=== PATIENT | male | born 1990 | race Caucasian/White ===

== ENCOUNTER 2016-10-17 17:48 | Emergency (ER) | payer SELFPAY ==
[2016-10-17 18:06] VITALS: TEMP 97.7
[2016-10-17 18:46] LABS: BASO # 0.1 K/uL (0.0-0.2); BASO % 0.8 % (0.0-2.0); EOS # 0.2 K/uL (0.0-0.7); EOS % 3.3 % (0.0-4.0); HEMOGLOBIN 14.5 g/dL (12.0-18.0); LYMPH # 1.6 K/uL (1.0-4.3); LYMPH % 23.8 % (20.0-40.0); MEAN CELL VOLUME 82.5 fL (80.0-94.0); MEAN CORPUSCULAR HEMOGLOBIN 27.1 pg (27.0-31.0); MEAN CORPUSCULAR HGB CONC 32.9 g/dL (33.0-37.0); MEAN PLATELET VOLUME 10.7 fL (7.2-11.7); MONO # 0.4 K/uL (0.0-0.8); MONO % 5.7 % (0.0-10.0); NEUT # 4.5 K/uL (1.8-7.0); NEUT % 66.4 % (50.0-75.0); NRBC % 0.1 % (0.0-2.0); RBC 5.36 Mil/uL (4.40-5.90); RED CELL DISTRIBUTION WIDTH 14.2 % (11.5-14.5); WHITE BLOOD COUNT 6.8 K/uL (4.8-10.8)
[2016-10-17 18:57] LABS: ALB/GLOB RATIO 1.1 (1.0-2.1)
[2016-10-17 18:58] LABS: CALCIUM 8.8 mg/dl (8.6-10.4)
[2016-10-17 19:08] LABS: TROPONIN I 0.085 ng/mL (0.00-0.120)
[2016-10-17] MEDS ORDERED: Sodium Chloride 0.9% 1,000 ML IV ONE (19:16)
[2016-10-17 19:18] LABS: URINE BILIRUBIN NEGATIVE (NEGATIVE); URINE BLOOD NEGATIVE (NEGATIVE); URINE CLARITY Clear (Clear); URINE COLOR Yellow (YELLOW); URINE GLUCOSE (UA) 1+ mg/dL (Normal); URINE LEUKOCYTE ESTERASE NEG Leu/uL (Negative); URINE NITRATE NEGATIVE (NEGATIVE); URINE PROTEIN 3+ mg/dL (NEGATIVE); URINE UROBILINOGEN NORMAL mg/dL (0.2-1.0)
--- NOTE | 2016-10-17 19:25 | C.PDOC ---
History Of Present Illness 26 year old male presents to the ED with complaints of "room-spinning" dizziness , nausea, and vomiting beginning at 4pm today. Patient notes a history of HTN beginning last year and has not followed up with a doctor. He denies fever, chest pain, or abdominal pain. Chief Complaint (Nursing): Dizziness/Lightheaded History Per: Patient History/Exam Limitations: no limitations Onset/Duration Of Symptoms: Hrs (since 4pm today ) Current Symptoms Are (Timing): Still Present Seizure Or Post-ictal Symptoms: None Fall Associated With With Symptoms: No Recent travel outside of the [place]: No Past Medical History Reviewed: Historical Data, Nursing Documentation, Vital Signs Vital Signs: Last Vital Signs Temp 97.7 F 10/17/16 18:02 Pulse 80 10/17/16 21:13 Resp 18 10/17/16 21:13 BP 166/110 H 10/17/16 21:13 Pulse Ox 94 L 10/17/16 21:13 - Medical History PMH: Asthma, HTN - [facility] Procedures APPLICATION OF SPLINT (10/15/13) Family History: States: Unknown Family Hx - Social History Hx Tobacco Use: No Hx Alcohol Use: No Hx Substance Use: No - Immunization History Hx Tetanus Toxoid Vaccination: No Hx Influenza Vaccination: No Hx Pneumococcal Vaccination: No Review Of Systems Constitutional: Negative for: Fever, Chills Cardiovascular: Negative for: Chest Pain Respiratory: Negative for: Cough, Shortness of Breath Gastrointestinal: Positive for: Nausea, Vomiting. Negative for: Abdominal Pain , Diarrhea Neurological: Positive for: Dizziness Physical Exam - Physical Exam Appears: Non-toxic, No Acute Distress Skin: Warm, Dry Head: Atraumatic Eye(s): bilateral: Normal Inspection, PERRL, EOMI Oral Mucosa: Moist Neck: Supple Chest: Symmetrical, No Deformity Cardiovascular: Rhythm Regular Respiratory: Normal Breath Sounds, No Rhonchi, No Wheezing Gastrointestinal/Abdominal: Soft, No Tenderness, No Distention, No Guarding, No Rebound Extremity: Normal ROM, No Tenderness, No Pedal Edema, No Calf Tenderness, No Swelling Neurological/Psych: Oriented x3, Normal Speech, Normal Cognition, Normal Cranial Nerves, Normal Motor, Normal Sensation, Other (No focal deficits) Gait: Steady ED Course And Treatment - Laboratory Results Result Diagrams: 10/17/16 18:42 10/17/16 18:42 O2 Sat by Pulse Oximetry: 95 (room air ) Disposition Counseled Patient/Family Regarding: Diagnosis - Disposition Referrals: [facility] [Outside] Disposition: HOME/ ROUTINE Disposition Time: 21:45 Condition: STABLE Prescriptions: Enalapril Maleate 5 mg PO DAILY #14 tablet Meclizine [Antivert] 12.5 mg PO Q6 #20 tab Instructions: Vertigo (ED), Hypertension (ED) Forms: [employer] (S[place] Arabian) - POA Present On Arrival: None - Clinical Impression Clinical Impression: Elevated blood pressure reading, Vertigo, Hypertension - Scribe Statement The provider has reviewed the documentation as recorded by the Scribe Lissette Rubio All medical record entries made by the Sujitibe were at my direction and personally dictated by me. I have reviewed the chart and agree that the record accurately reflects my personal performance of the history, physical exam, medical decision making, and the department course for this patient. I have also personally directed, reviewed, and agree with the discharge instructions and disposition.
[2016-10-17] MEDS ORDERED: Sodium Chloride 0.9% 1,000 ML ONE (19:26)
[2016-10-17 20:47] VITALS: RESP 18
[2016-10-17] MEDS ORDERED: Enalaprilat 2.5 MG/2 ML IV ONE (20:52)
[2016-10-17] MEDS ORDERED: Enalaprilat 2.5 MG/2 ML ONE (20:57)
[2016-10-17 21:18] VITALS: BP 166/110; PULSE 80
[2016-10-17 21:48] VITALS: O2SAT 95
--- NOTE | 2016-10-18 09:09 | CT ---
PROCEDURE: CT HEAD WITHOUT CONTRAST. HISTORY: vertigo/ vomiting COMPARISON: None available. TECHNIQUE: Axial computed tomography images were obtained through the head/brain without intravenous contrast. Radiation dose: Total exam DLP = 1157 mGy-cm. This CT exam was performed using one or more of the following dose reduction techniques: Automated exposure control, adjustment of the mA and/or kV according to patient size, and/or use of iterative reconstruction technique. FINDINGS: HEMORRHAGE: No intracranial hemorrhage. BRAIN: No mass effect or edema. No atrophy or chronic microvascular ischemic changes. Prominent cisterna magna. VENTRICLES: Unremarkable. No hydrocephalus. CALVARIUM: Unremarkable. PARANASAL SINUSES: Unremarkable as visualized. No significant inflammatory changes. MASTOID AIR CELLS: Unremarkable as visualized. No inflammatory changes. OTHER FINDINGS: None. IMPRESSION: No acute intracranial abnormality. If symptoms persists, consider MRI. These findings were preliminarily reported at 8:27 p.m. on 10/17/[address] Kirti Ly from [facility].
== END 2016-10-17 22:02 | disposition home or self-care (01) ==
LOC: C.ER 17:48
DX: R42 Dizziness and giddiness (principal); I10 Essential (primary) hypertension
CPT/HCPCS: 70450; 80053; 81001; 83690; 84484; 85025; 96374; 96375; 99285; J2060; J2405; J7040

== ENCOUNTER 2016-11-19 07:05 | Inpatient (IN) | payer BC ==
[2016-11-19 07:18] VITALS: BMI 34.2
[2016-11-19] MEDS ORDERED: Albuterol-Ipratrop 3 mg / 0.5 (3 ml) UD ONE (07:27)
[2016-11-19] MEDS ORDERED: Albuterol 0.083% Inhal Sol (2.5 mg/3 mL) UD IH STA (07:35)
[2016-11-19] MEDS ORDERED: Albuterol-Ipratrop 3 mg / 0.5 (3 ml) UD INH STA (07:35)
[2016-11-19] MEDS ORDERED: Albuterol 0.083% Inhal Sol (2.5 mg/3 mL) UD ONE (07:45)
[2016-11-19 08:02] LABS: BASO # 0.1 K/uL (0.0-0.2); BASO % 1.3 % (0.0-2.0); EOS # 0.5 K/uL (0.0-0.7); EOS % 6.5 % (0.0-4.0); HEMATOCRIT 42.1 % (35.0-51.0); LYMPH # 2.4 K/uL (1.0-4.3); LYMPH % 30.4 % (20.0-40.0); MEAN CELL VOLUME 81.8 fL (80.0-94.0); MEAN PLATELET VOLUME 10.8 fL (7.2-11.7); MONO # 0.5 K/uL (0.0-0.8); MONO % 6.8 % (0.0-10.0); NRBC % 0.2 % (0.0-2.0); RED CELL DISTRIBUTION WIDTH 14.2 % (11.5-14.5); WHITE BLOOD COUNT 7.7 K/uL (4.8-10.8)
--- NOTE | 2016-11-19 08:03 | RAD ---
PROCEDURE: CHEST RADIOGRAPH, 1 VIEW HISTORY: SOB COMPARISON: 11/28/2014 FINDINGS: LUNGS: The interstitial and bronchovascular markings appear diffusely increased. Overall soft tissues also appear increased vague increased opacity at the right lung base noted here coalescent pulmonary edema versus coalescent she infiltrate. Limited visualization of bold base. PLEURA: No pneumothorax or pleural fluid seen. CARDIOVASCULAR: Marked interval cardiomegaly -significant change. The differences in technique are noted and, in part contributory OSSEOUS STRUCTURES: No significant abnormalities. VISUALIZED UPPER ABDOMEN: Normal. OTHER FINDINGS: None. IMPRESSION: Interval cardiomegaly. Interval views interstitial marking prominence -interstitial pulmonary edema with mild coalescence at the right lung base and possibly left lung base and considerations. Patchy bibasilar vague infiltrates are not excluded. Follow-up recommended Overall body habitus also appears increased
[2016-11-19 08:28] LABS: POTASSIUM 3.2 mmol/L (3.6-5.2)
[2016-11-19 08:30] LABS: ALB/GLOB RATIO 1.2 (1.0-2.1); BILIRUBIN,TOTAL 0.7 mg/dL (0.2-1.3); TOTAL PROTEIN 7.3 g/dL (6.3-8.3)
[2016-11-19 08:31] LABS: CALCIUM 8.5 mg/dl (8.6-10.4)
[2016-11-19] MEDS ORDERED: Nitroglycerin 50mg in D5W 50 MG/250 ML BOTTLE IV STA (09:10)
[2016-11-19 09:13] LABS: TROPONIN I 0.166 ng/mL (0.00-0.120)
--- NOTE | 2016-11-19 09:14 | C.PDOC ---
History Of Present Illness 26 y/o male presents to ED with c/o SOB, non-productive cough, and chest tightness for the past 3 days. Patient reports PMHx of HTN and asthma, states he was diagnosed with HTN approx 1 year ago, but is not taking any medications. Patient denies fever, chills, nausea, vomiting, chest pain, palpitations. Time Seen by Provider: 11/19/16 07:32 Chief Complaint (Nursing): Shortness Of Breath History Per: Patient History/Exam Limitations: no limitations Current Symptoms Are (Timing): Still Present Current Respiratory Medications: See Home Med List Severity: Moderate Associated Symptoms: denies: Fever, Chills, Chest Pain, Bloody Cough, Dizziness Recent travel outside of the [place]: No Past Medical History Reviewed: Historical Data, Nursing Documentation, Vital Signs Vital Signs: Last Vital Signs Temp 98.1 F 11/19/16 11:30 Pulse 95 H 11/19/16 16:44 Resp 18 11/19/16 16:44 BP 117/78 11/19/16 18:16 Pulse Ox 96 11/19/16 18:45 - Medical History PMH: Asthma, Bronchitis, HTN - [facility] Procedures APPLICATION OF SPLINT (10/15/13) Family History: States: No Known Family Hx - Social History Hx Tobacco Use: No Hx Alcohol Use: No Hx Substance Use: No - Immunization History Hx Tetanus Toxoid Vaccination: Yes Hx Influenza Vaccination: No Hx Pneumococcal Vaccination: No Review Of Systems Except As Marked, All Systems Reviewed And Found Negative. Constitutional: Negative for: Fever, Chills Cardiovascular: Negative for: Chest Pain Respiratory: Positive for: Cough, Shortness of Breath, SOB with Excertion, Wheezing. Negative for: Sputum Gastrointestinal: Negative for: Nausea, Vomiting, Abdominal Pain, Diarrhea Skin: Negative for: Rash Neurological: Negative for: Headache, Dizziness Physical Exam - Physical Exam Appears: Non-toxic, Other (in mild to moderate respiratory distress, speaking in short sentences) Skin: Warm, Dry, No Rash Head: Normacephalic Oral Mucosa: Moist Chest: Symmetrical Cardiovascular: Rhythm Regular (tachycardic) Respiratory: Accessory Muscle Use (mild), Rales (bilateral), No Rhonchi, Wheezing (expiratory, bilaterally) Gastrointestinal/Abdominal: Bowel Sounds, Soft, No Tenderness, Other (obese) Back: Normal Inspection Extremity: Normal ROM, No Calf Tenderness, Capillary Refill (< 2 sec.), Other (+ 1 pitting edema B/L lower legs) Pulses: Left Dorsalis Pedis: Normal, Right Dorsalis Pedis: Normal Neurological/Psych: Oriented x3 ED Course And Treatment - Laboratory Results Result Diagrams: 11/19/16 07:55 11/19/16 07:55 ECG: Interpreted By Me, Viewed By Me ECG Rhythm: Sinus Tachycardia ECG Interpretation: Abnormal Interpretation Of ECG: normal axis, LVH, no acute ST/T wave changes Rate From EC (bpm) O2 Sat by Pulse Oximetry: 96 Pulse Ox Interpretation: Normal - Radiology CXR: Interpreted by Me, Viewed By Me (cardiomegaly, (+) pulm vascular congestion ) Progress Note: Blood work, CXR, EKG ordered and reviewed. Patient given IV solumedrol, IV Lasix, IV hydralazine, nebulizer treatments. Stat echo ordered due to clinic picture of CHF, CXR showing marked cardiomegaly - possible pericardial effusion. IV Tridil drip and Bipap ordered. 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 Patient admitted under hospitalist service Dr. Hopper, pending discussion with intesivist. 9:55am- Spoke with ICU resident, they are aware of ICU patient for their eval/admission. Dr. Peres to come down and eval patient. - Physician Consult Information Physician Contacted: Govind Hopper Outcome Of Conversation: Hospitalist aware of ICU admission & in agreement Critical Care Time - Critical Care Note Total Time (in mins): 40 Documented critical care: time excludes all time spent performing seperately billable procedures. Disposition - Disposition Disposition: HOSPITALIZED Disposition Time: 09:33 Condition: CRITICAL - Clinical Impression Clinical Impression: Acute renal failure, Acute CHF, Elevated brain natriuretic peptide (BNP) level , Pericardial effusion, Elevated troponin, Hypertensive emergency Decision To Admit - Pt Status Changed To: Hospital Disposition Of: Inpatient - Admit Certification Admit to Inpatient:: After my assessment, the patient will require hospitalization for at least two midnights. This is because of the severity of symptoms shown, intensity of services needed, and/or the medical risk in this patient being treated as an outpatient. - InPatient: Physician Admission Certification: I certify that this patient requires 2 or more midnights of care for the following reason:: see notes - . Bed Request Type: ICU Admitting Physician: Govind Hopper Patient Diagnosis: Acute CHF, Pericardial effusion, Elevated brain natriuretic peptide (BNP) level , Elevated troponin, Acute renal failure, Hypertensive emergency
[2016-11-19] MEDS ORDERED: Nitroglycerin 50mg in D5W 50 MG/250 ML BOTTLE IV ONE (09:21)
--- NOTE | 2016-11-19 09:25 | C.PDOC ---
Time Seen by Provider: 11/19/16 07:32 Chief Complaint (Nursing): Shortness Of Breath Past Medical History Vital Signs: Last Vital Signs Temp 99.1 F 11/19/16 07:18 Pulse 102 H 11/19/16 08:55 Resp 30 H 11/19/16 08:55 BP 205/139 H 11/19/16 08:55 Pulse Ox 96 11/19/16 08:55 - Medical History PMH: Asthma, Bronchitis, HTN Denies: Chronic Kidney Disease - [facility] Procedures APPLICATION OF SPLINT (10/15/13) Family History: States: Unknown Family Hx - Social History Hx Tobacco Use: No Hx Alcohol Use: No Hx Substance Use: No - Immunization History Hx Tetanus Toxoid Vaccination: Yes Hx Influenza Vaccination: No Hx Pneumococcal Vaccination: No ED Course And Treatment - Laboratory Results Result Diagrams: 11/19/16 07:55 11/19/16 07:55 O2 Sat by Pulse Oximetry: 96 Disposition - Disposition Forms: [employer] (Somali)
[2016-11-19] MEDS ORDERED: Perflutren Lipid Microsphere 1.5 ML SUS IV ONE (09:30)
[2016-11-19 11:32] LABS: PHOSPHOROUS 3.9 mg/dL (2.5-4.5)
[2016-11-19 11:33] LABS: MAGNESIUM 1.8 mg/dL (1.6-2.3)
[2016-11-19] MEDS: Potassium Chloride 20 mEq ER Tab PO SCH (12:21)
[2016-11-19] MEDS ORDERED: Enoxaparin 120 mg Syringe SC SCH (14:45)
--- NOTE | 2016-11-19 14:52 | CP.PCM.HP ---
History of Present Illness - History of Present Illness History of Present Illness: Patient was seen and examined by me in ICU bed 4 I spoke with the patient as well as the family at bedside and also with ER. Jason Esteves is a 26 year old male who came to the ER with the chief complaint of 3 days of worsening shortness of breath, chest pressure. From what the patient explains and what the family say, he has never been hospitalized before. In the ER he had an XRAY done which revealed a very significant cardiomegaly as well as bilateral chest congestion. He also had a systolic blood pressure of 225/110 and it did not respond to medications and thus was started on a Tridil ggt and brought to the ICU for further titration. Because of the way the the chest XRAY appeared there was concern that he may have had a pericardial tamponade/fluid collection around the heart and a stat echo was done. At this time we are currently pending the official report however I am being told that it appears that the patient does not have tamponade or pericardial effusion but that he has cardiomyopathy/hypokinesis. He has a BNP of 1,800 and there are borderline elevated tropinins as well. When I came and saw the patient he was already in ICU 4 and the systolic BP had come down to 170s while on the tridil ggt. He had also received a one time dose of Lasix 40 as well. He explained he felt much better, his shortness of breath was still present but improved. He reported the chest pain/pressure resolved, the shortness of breath resolved, denied headache, denied blurry vision, denied abdominal pain, denied fevers, denied chills. Both the patient and family explain that he does not sleep at night, that he has heavy snorring. He states he cannot lay flat on his back due to coughing. He and his family also reports a very poor eating habits and consumes very salty and unhealthy food. Past Medical Hx: HTN, Asthma Surgical Hx: None Allergies: To seafood/shrimp Family history: Mother is present and says she has a history of lupus and HTN. Father explains that every single man in his side of the family has heart disease and multiple deaths from heart attacks. Medications: None Social: Denied smoking, denied alcohol, denied drugs Present on Admission - Present on Admission Any Indicators Present on Admission: Yes History of DVT/PE: No History of Uncontrolled Diabetes: No Urinary Catheter: No Decubitus Ulcer Present: No Review of Systems - Constitutional Constitutional: Daytime Sleepiness, Headache, Lethargy, Snoring - EENT Eyes: absent: Blurred Vision, Change in Vision - Cardiovascular Cardiovascular: Chest Pain. absent: Irregular Heart Rhythm, Palpitations - Respiratory Respiratory: Dyspnea, Dyspnea on Exertion, Snoring - Gastrointestinal Gastrointestinal: absent: Abdominal Pain, Belching, Bloating - Genitourinary Genitourinary: absent: Change in Urinary Stream, Difficulty Urinating - Neurological Neurological: absent: Abnormal Gait, Abnormal Hearing, Abnormal Speech - Psychiatric Psychiatric: Abnormal Sleep Pattern Past Patient History - Past Medical History & Family History Past Medical History?: Yes Past Family History: Reviewed and not pertinent Pertinent Family History: Please see above - Past Social History Smoking Status: Never Smoked - CARDIAC Hx Hypertension: Yes - PULMONARY Hx Asthma: Yes Hx Bronchitis: Yes - NEUROLOGICAL Hx Neurological Disorder: No - HEENT Hx HEENT Problems: No - RENAL Hx Chronic Kidney Disease: No - ENDOCRINE/METABOLIC Hx Endocrine Disorders: No - HEMATOLOGICAL/ONCOLOGICAL Hx Blood Disorders: No - INTEGUMENTARY Hx Dermatological Problems: No - MUSCULOSKELETAL/RHEUMATOLOGICAL Hx Falls: No - GASTROINTESTINAL Hx Gastrointestinal Disorders: No - GENITOURINARY/GYNECOLOGICAL Hx Genitourinary Disorders: No - PSYCHIATRIC Hx Substance Use: No - SURGICAL HISTORY Hx Surgeries: No - ANESTHESIA Hx Anesthesia: No Meds Allergies/Adverse Reactions: Allergies Allergy/AdvReac Type Severity Reaction Status Date / Time shrimp Allergy Uncoded 11/19/16 07:18 Physical Exam - Constitutional Appears: No Acute Distress - Head Exam Head Exam: NORMAL INSPECTION, NORMOCEPHALIC - Eye Exam Eye Exam: EOMI, Normal appearance - ENT Exam ENT Exam: Mucous Membranes Moist - Respiratory Exam Respiratory Exam: Decreased Breath Sounds, NORMAL BREATHING PATTERN - Cardiovascular Exam Cardiovascular Exam: REGULAR RHYTHM. absent: Systolic Murmur Additional comments: At this time I do not appreciate mumurrs - GI/Abdominal Exam GI & Abdominal Exam: Normal Bowel Sounds, Soft. absent: Distended, Firm, Guarding - Neurological Exam Neurological exam: Alert, Oriented x3 - Psychiatric Exam Psychiatric exam: Normal Affect, Normal Mood - Skin Skin Exam: Normal Color, Warm Results - Vital Signs Recent Vital Signs: Last Vital Signs Temp 98.1 F 11/19/16 11:30 Pulse 108 H 11/19/16 13:06 Resp 24 11/19/16 13:00 BP 183/113 H 11/19/16 12:44 Pulse Ox 98 11/19/16 13:06 - Labs Result Diagrams: 11/19/16 07:55 11/19/16 07:55 Assessment & Plan - Assessment and Plan (Free Text) Assessment: CHF/Shortness of breath - likely secondary from cardiomyopathy/hypokinesis 11/19: Pending the official echo results at this time, this being said I am being told he does not appear he has pericardial effusion/tamponade at this time. Also the way the EKG looks does not appear to be tamponade as size of his QRS complexes are not small and it does not appear to be alteran appearance. He will be on lasix IV as well as bipap as needed Because of his CHF/cardiomyopathy and elevated BP, will add on MICA-I now. Also start on ASA and statin. Cardiology evaluation is pending Repeat CXRAY tommorow The first troponin is elevated, probably from the stress. Lovenox 110 sc BID given. Trend additional cardiac enzymes. HTN Urgency/Emergency - improved - now currently on Tridil/nitroglycerin ggt. 11/19 Being titrated at this time. Also on Lasix Added on MICA-I Pending echo Obstructive sleep apnea: 11/19 He will need an outpatient work up in the future. [place] this long standing MARY is contributing to his CHF and cardiomyopathy. I spoke with the family with a help of clinical manager and updated them as well.
--- NOTE | 2016-11-19 15:04 | CP.PCM.CON ---
<Sahra Diaz - Last Filed: 11/19/16 17:31> History of Present Illness - History of Present Illness History of Present Illness: Thoracic Surgery - Dr. Ocampo 26 yo M who presented to ED today w/ worsening SOB x3 days. Pt. states he's never had anything like this before, notes that he recently was dx with HTN by his PMD, Dr. Mckeon. He describes gradual onset of SOB and chest pressure which began 3 days ago, much worse laying down. He states he was unable to sleep last night and therefore decided to come to ED today. He denies any Fever /Chills, N/V, Dizziness/Headache. PMH: HTN, Asthma PSH: none NKDA No meds In ED pt was Hypertensive w/ systolic pressure >200. CXR shows cardiomegaly. Surgery was consulted to R/O pericardial effusion/cardiac tamponade. Review of Systems - Review of Systems All systems: reviewed and no additional remarkable complaints except (as per HPI ) Past Patient History - Past Medical History & Family History Past Medical History?: Yes - Past Social History Smoking Status: Never Smoked - CARDIAC Hx Hypertension: Yes - PULMONARY Hx Asthma: Yes Hx Bronchitis: Yes - NEUROLOGICAL Hx Neurological Disorder: No - HEENT Hx HEENT Problems: No - RENAL Hx Chronic Kidney Disease: No - ENDOCRINE/METABOLIC Hx Endocrine Disorders: No - HEMATOLOGICAL/ONCOLOGICAL Hx Blood Disorders: No - INTEGUMENTARY Hx Dermatological Problems: No - MUSCULOSKELETAL/RHEUMATOLOGICAL Hx Falls: No - GASTROINTESTINAL Hx Gastrointestinal Disorders: No - GENITOURINARY/GYNECOLOGICAL Hx Genitourinary Disorders: No - PSYCHIATRIC Hx Substance Use: No - SURGICAL HISTORY Hx Surgeries: No - ANESTHESIA Hx Anesthesia: No Meds Allergies/Adverse Reactions: Allergies Allergy/AdvReac Type Severity Reaction Status Date / Time shrimp Allergy Uncoded 11/19/16 07:18 - Medications Medications: Current Medications Aspirin (Aspirin Chewable) 81 mg PO DAILY [facility] Enoxaparin Sodium (Lovenox) 120 mg SC Q12H [facility] Nitroglycerin/Dextrose (Nitroglycerin 50 Mg/250 Ml D5w) 50 mg in 250 mls @ 1.5 mls/hr IV .Q24H STA; 5 MCG/MIN PRN Reason: Protocol Stop: 11/20/16 09:09 Last Titration: 11/19/16 10:16 Dose: 10 mcg/min, 3 mls/hr Lisinopril (Zestril) 10 mg PO DAILY [facility] Potassium Chloride (K-Dur 20 Meq Er Tab) 40 meq PO DAILY [facility] Last Admin: 11/19/16 12:21 Dose: 40 meq Rosuvastatin Calcium (Crestor) 10 mg PO [facility] Physical Exam - Constitutional Appears: No Acute Distress Additional comments: on non rebreather, comfotable - Head Exam Head Exam: ATRAUMATIC, NORMAL INSPECTION, NORMOCEPHALIC - Eye Exam Eye Exam: EOMI, Normal appearance - ENT Exam ENT Exam: Mucous Membranes Moist - Respiratory Exam Respiratory Exam: Clear to Auscultation Bilateral, NORMAL BREATHING PATTERN. absent: Respiratory Distress Additional comments: on non-rebreather, O2 sats 100% - Cardiovascular Exam Cardiovascular Exam: REGULAR RHYTHM, +S1, +S2 - Extremities Exam Extremities exam: Negative for: calf tenderness, pedal edema Additional comments: No JVD - Neurological Exam Neurological exam: Alert, Oriented x3 - Psychiatric Exam Psychiatric exam: Normal Affect, Normal Mood - Skin Skin Exam: Dry, Intact Results - Vital Signs Recent Vital Signs: Last Vital Signs Temp 98.1 F 11/19/16 11:30 Pulse 108 H 11/19/16 13:06 Resp 24 11/19/16 13:00 BP 183/113 H 11/19/16 12:44 Pulse Ox 98 11/19/16 13:06 - Labs Result Diagrams: 11/19/16 07:55 11/19/16 07:55 Assessment & Plan - Assessment and Plan (Free Text) Assessment: 26 yo M w/ new onset SOB and cardiomegaly, surgery consulted to r/o effusion/ tamponade -No physical exam findings to suggest pericardial effusion/tamponade -Prelim echo review suggesting dilated cardiomyopathy -F/U official Echo report -No acute surgical intervention planned -DW Dr. Damaris Diaz PGY3 <Lacho Ocampo - Last Filed: 11/20/16 13:41> Meds - Medications Medications: Current Medications Aspirin (Aspirin Chewable) 81 mg PO DAILY [facility] Last Admin: 11/20/16 10:00 Dose: 81 mg Furosemide (Lasix) 20 mg IVP BID [facility] Last Admin: 11/20/16 09:59 Dose: 20 mg Heparin Sodium/Sodium Chloride (Heparin 36585 Units/250ml 1/2 Normal Saline) 25 ,000 units in 250 mls @ 17.64 mls/hr IV .[id number] PRN; Protocol; 15 UNITS/KG/HR PRN Reason: PROTOCOL Last Admin: 11/20/16 10:00 Dose: 15 units/kg/hr, 17.64 mls/hr Lisinopril (Zestril) 10 mg PO DAILY [facility] Last Admin: 11/20/16 09:59 Dose: 10 mg Potassium Chloride (K-Dur 20 Meq Er Tab) 40 meq PO DAILY [facility] Last Admin: 11/20/16 09:59 Dose: 40 meq Rosuvastatin Calcium (Crestor) 10 mg PO HS [facility] Last Admin: 11/19/16 21:05 Dose: 10 mg Results - Vital Signs Recent Vital Signs: Last Vital Signs Temp 97.5 F L 11/20/16 08:00 Pulse 80 11/20/16 12:14 Resp 25 H 11/20/16 12:14 BP 152/95 H 11/20/16 12:14 Pulse Ox 98 11/20/16 12:14 - Labs Result Diagrams: 11/20/16 06:20 11/20/16 06:20 Labs: Laboratory Results - last 24 hr 11/19/16 11/19/16 11/20/16 14:38 20:33 06:20 WBC 16.4 H D RBC 4.73 Hgb 12.7 Hct 38.9 MCV 82.2 MCH 26.8 L MCHC 32.6 L RDW 14.5 Plt Count 225 MPV 11.7 Neut % (Auto) 89.9 H Lymph % (Auto) 3.5 L Burt % (Auto) 4.5 Eos % (Auto) 0.1 Baso % (Auto) 2.0 Neut # 14.7 H Lymph # 0.6 L Burt # 0.7 Eos # 0.0 Baso # 0.3 H Neutrophils % (Manual) 90 H Lymphocytes % (Manual) 4 L Monocytes % (Manual) 6 Platelet Estimate Normal RBC Morphology Normal Sodium Potassium Chloride Carbon Dioxide Anion Gap BUN Creatinine Est GFR ( Amer) Est GFR (Non-Af Amer) Random Glucose Calcium Phosphorus Magnesium Total Bilirubin AST ALT Alkaline Phosphatase Total Creatine Kinase 133 109 CK-MB (Mass) 2.17 1.74 Troponin I Cancelled Troponin I, Quant 0.1130 0.1270 H* Total Protein Albumin Globulin Albumin/Globulin Ratio TSH 3rd Generation Urine Opiates Screen Urine Methadone Screen Ur Barbiturates Screen Ur Phencyclidine Scrn Ur Amphetamines Screen U Benzodiazepines Scrn U Oth Cocaine Metabols U Cannabinoids Screen CRAIG 6 Profile 11/20/16 11/20/16 11/20/16 06:20 06:20 12:45 WBC RBC Hgb Hct MCV MCH MCHC RDW Plt Count MPV Neut % (Auto) Lymph % (Auto) Burt % (Auto) Eos % (Auto) Baso % (Auto) Neut # Lymph # Burt # Eos # Baso # Neutrophils % (Manual) Lymphocytes % (Manual) Monocytes % (Manual) Platelet Estimate RBC Morphology Sodium 140 Potassium 3.5 L Chloride 107 Carbon Dioxide 22 Anion Gap 15 BUN 44 H Creatinine 2.7 H Est GFR ( Amer) 35 Est GFR (Non-Af Amer) 29 Random Glucose 95 Calcium 8.8 Phosphorus 4.0 Magnesium 1.8 Total Bilirubin 0.6 AST 23 ALT 39 Alkaline Phosphatase 44 Total Creatine Kinase 78 CK-MB (Mass) 1.78 Troponin I Troponin I, Quant 0.1320 H* Total Protein 6.7 Albumin 3.5 Globulin 3.1 Albumin/Globulin Ratio 1.1 TSH 3rd Generation 0.70 Urine Opiates Screen Negative Urine Methadone Screen Negative Ur Barbiturates Screen Negative Ur Phencyclidine Scrn Negative Ur Amphetamines Screen Negative U Benzodiazepines Scrn Negative U Oth Cocaine Metabols Negative U Cannabinoids Screen Negative CRAIG 6 Profile Negative Addendum Addendum: 11/20/16 13:38 Pt s/e. Imaging studies reviewed. No evidence of cardiac tamponade. d/w Fadi Jj and Quinten.
--- NOTE | 2016-11-19 16:13 | CP.PCM.CON ---
<Michael Jaquez - Last Filed: 11/19/16 16:13> History of Present Illness - History of Present Illness History of Present Illness: CC: SOB and chest pain This is a 26 yo M with a PMHx of HTN, bronchitis and asthma, presenting to the ED this morning due to 3 days of SOB and pressure-like chest pain. The patient said that the SOB became more severe this morning at 6am after coming back home from work, and decided to walk himself to the ED because he [place] two blocks away. The SOB was accompanied by cough with white sputum production. SOB is exacerbated by walking and chest pain is most prominent when coughing. Patient states has visited the ED in the past for shortness of breath which was treated an asthma exacerbation. During his last ED visit 3 months ago he was prescribed HTN medications but failed to get them filled due to insurance issues. Patient is now on Bipap and states the shortness of breath and chest pain have resolved. Patient admits to difficulty sleeping due to cough when lying flat, also heavy snoring. Also admits to unhealthy diet consisting of high salt content foods. Patient currently denies any headache, double vision, dizziness, SOB, cough, chest pain, palpitations, N/V/D/C or generalized pain. PMHx: asthma, HTN, bronchitis PSHx: none Medications: none FamHx: mother has lupus, HTN and reumatoid arthritis; father has a family history of cardiac issues, many relatives on father's side with heart disease and multiple deaths from heart attack Allergies: seafood/shrimp Social Hx: denies tobacco, denies etOH, denies illicit drug use, denies caffeine ; lives with parents at home; employed as manager of engineering at [employer] Review of Systems - Constitutional Constitutional: Lethargy, Sleep Apnea. absent: Chills, Fever, Headache - EENT Eyes: absent: Blurred Vision, Change in Vision Nose/Mouth/Throat: absent: Sore Throat - Cardiovascular Cardiovascular: Chest Pain. absent: Diaphoresis, Pain Radiating to Arm/Neck/Jaw - Respiratory Respiratory: Dyspnea, Dyspnea on Exertion, Snoring. absent: Cough, Wheezing - Gastrointestinal Gastrointestinal: absent: Abdominal Pain, Bloating, Constipation, Diarrhea, Nausea - Genitourinary Genitourinary: absent: Dysuria - Musculoskeletal Musculoskeletal: absent: Back Pain - Neurological Neurological: absent: Confusion, Dizziness - Hematologic/Lymphatic Hematologic: absent: Easy Bleeding Past Patient History - Past Medical History & Family History Past Medical History?: Yes Past Family History: Reviewed and not pertinent - Past Social History Smoking Status: Never Smoked - CARDIAC Hx Hypertension: Yes - PULMONARY Hx Asthma: Yes Hx Bronchitis: Yes - NEUROLOGICAL Hx Neurological Disorder: No - HEENT Hx HEENT Problems: No - RENAL Hx Chronic Kidney Disease: No - ENDOCRINE/METABOLIC Hx Endocrine Disorders: No - HEMATOLOGICAL/ONCOLOGICAL Hx Blood Disorders: No - INTEGUMENTARY Hx Dermatological Problems: No - MUSCULOSKELETAL/RHEUMATOLOGICAL Hx Falls: No - GASTROINTESTINAL Hx Gastrointestinal Disorders: No - GENITOURINARY/GYNECOLOGICAL Hx Genitourinary Disorders: No - PSYCHIATRIC Hx Substance Use: No - SURGICAL HISTORY Hx Surgeries: No - ANESTHESIA Hx Anesthesia: No Meds Allergies/Adverse Reactions: Allergies Allergy/AdvReac Type Severity Reaction Status Date / Time shrimp Allergy Uncoded 11/19/16 07:18 - Medications Medications: Current Medications Aspirin (Aspirin Chewable) 81 mg PO DAILY [facility] Enoxaparin Sodium (Lovenox) 120 mg SC Q12H [facility] Furosemide (Lasix) 20 mg IVP BID [facility] Nitroglycerin/Dextrose (Nitroglycerin 50 Mg/250 Ml D5w) 50 mg in 250 mls @ 1.5 mls/hr IV .Q24H STA; 5 MCG/MIN PRN Reason: Protocol Stop: 11/20/16 09:09 Last Titration: 11/19/16 11:50 Dose: 40 mcg/min, 12 mls/hr Lisinopril (Zestril) 10 mg PO DAILY [facility] Potassium Chloride (K-Dur 20 Meq Er Tab) 40 meq PO DAILY [facility] Last Admin: 11/19/16 12:21 Dose: 40 meq Rosuvastatin Calcium (Crestor) 10 mg PO HS [facility] Physical Exam - Constitutional Appears: Well, Non-toxic, No Acute Distress - Head Exam Head Exam: ATRAUMATIC, NORMAL INSPECTION - Eye Exam Eye Exam: EOMI Pupil Exam: NORMAL ACCOMODATION, PERRL - ENT Exam ENT Exam: Mucous Membranes Moist - Neck Exam Neck exam: Positive for: Normal Inspection - Respiratory Exam Respiratory Exam: Clear to Auscultation Bilateral, NORMAL BREATHING PATTERN. absent: Rales, Rhonchi, Wheezes - Cardiovascular Exam Cardiovascular Exam: Tachycardia, REGULAR RHYTHM, +S1, +S2. absent: Irregular Rhythm, Systolic Murmur - GI/Abdominal Exam GI & Abdominal Exam: Normal Bowel Sounds, Soft. absent: Tenderness - Rectal Exam Rectal Exam: Deferred - Extremities Exam Extremities exam: Negative for: pedal edema - Neurological Exam Neurological exam: Alert, Oriented x3 - Psychiatric Exam Psychiatric exam: Normal Affect, Normal Mood - Skin Skin Exam: Dry, Intact, Normal Color, Warm Results - Vital Signs Recent Vital Signs: Last Vital Signs Temp 98.1 F 11/19/16 11:30 Pulse 108 H 11/19/16 13:06 Resp 24 11/19/16 13:00 BP 183/113 H 11/19/16 12:44 Pulse Ox 98 11/19/16 13:06 - Labs Result Diagrams: 11/19/16 07:55 11/19/16 07:55 Labs: Laboratory Results - last 24 hr 11/19/16 14:38 Total Creatine Kinase 133 CK-MB (Mass) 2.17 Troponin I Cancelled Troponin I, Quant 0.1130 Assessment & Plan - Assessment and Plan (Free Text) Assessment: 26 yo M with PMHx of asthma, bronchitis, presenting with shortness of breath and pressure-like chest pain. Patient found to have hypertensive urgency, CXR showing severe cardiomegaly. Cardiovascular: HTN urgency; cardiomegaly; - cardiomegaly likely 2/2 cardiomyopathy/hypokinesis - tridil/nitroglycerin ggt - first troponin elevated, second troponin normal, f/u third troponin - ekg showing left ventricular hypertrophy, no acute ST changes, no changes indicative of tamponade - pending official echo report - aspiring 81mg po daily, lovenox 120mg sc q12, lisinopril 10mg po daily, rosuvastatin 10mg po hs - pro-bnp 1810 - In/Outs, daily weight measurements Pulmonary: shortness of breath - shortness of breath likely 2/2 cardiomyopathy/hypokinesis - furosemide 20mg iv bid - breathing comfortably on bipap Endocrine: r/o endocrine etiology for cardiomegaly - TSH, F/U - CRAIG, F/U Prophylaxis: DVT: lovenox 120mg sc q12 GI: Diet: heart healthy All other organ systems with no active issues <Yogi Peres - Last Filed: 11/24/16 11:06> Results - Vital Signs Recent Vital Signs: Last Vital Signs Temp 98.4 F 11/22/16 12:00 Pulse 78 11/22/16 15:04 Resp 19 11/22/16 15:04 BP 126/90 11/22/16 15:04 Pulse Ox 98 11/22/16 08:00 - Labs Result Diagrams: 11/22/16 06:40 11/22/16 06:40 Attending/Attestation - Attestation I have personally seen and examined this patient.: Yes I have fully participated in the care of the patient.: Yes I have reviewed all pertinent clinical information: Yes Notes (Text): Today: , November 19, 2016 The patient was Seen/interviewed and examined by me at the bedside during ICU round, Medical records reviewed and Management issues were discussed and formulated with the house staff. I have reviewed all the relevant clinical, laboratory, hemodynamic, radiographic data and medications Pain issues, skin care, head of the bed elevation, glycemic control were addressed. Acute Hypoxemic respiratory failure from CHF/Cardiomyopathy/fluid overload HTN urgency NTG drip BIPAP Diuresis Stat ECHO Cardiology and Vascular surgery GI/DVT PPX I concur with resident's assessment and plan of care as transcribed in Dr. Jaquez note.
--- NOTE | 2016-11-19 21:55 | CARD ---
APPROVED REPORT EXAM: Two-dimensional and M-mode echocardiogram with Doppler and color Doppler. Other Information Quality : GoodRhythm : Atrial Fibrillation INDICATION Pericardial Effusion Dizziness and Vertigo Dyspnea Systolic Cardiomegaly RISK FACTORS Hypertension Obesity 2D DIMENSIONS IVSd1.3 (0.7-1.1cm)LVDd6.7 (3.9-5.9cm) PWd1.3 (0.7-1.1cm)LVDs5.9 (2.5-4.0cm) FS (%) 12.1 %LVEF (%)30.0 (>50%) M-Mode DIMENSIONS RVDd1.81 (2.1-3.2cm)Left Atrium (MM)5.08 (2.5-4.0cm) Aortic Root3.78 (2.2-3.7cm)Aortic Cusp Exc.2.74 (1.5-2.0cm) Mitral Valve E/A ratio0.0 TDI E/Lateral E'0.0E/Medial E'0.0 Tricuspid Valve TR Peak [id number] Peak [id number] <Conclusion> Left ventricle: thickness: mild concentric thickening; size: normal; overall ejection fraction: 35%: diastolic filling pressures:elevated Mitral valve: annulus: normal: leaflets: normal: excursion: normal; no significant trans-mitral gradient:mild incompetence: left atrium: dilated Aortic valve: leaflets: normal: excursion: normal; no significant trans-aortic gradient: trace incompetence: aortic root: normal Right sided Structures: Pulmonary valve: normal; no significant incompetence; Tricuspid valve: normal; no significant incompetence: Intra-cardiac hemodynamics: pulmonary systolic pressures: normal; central venous pressures: normal mild pericardial effusion; atrial systolic collapse; normal transmitral phasic flow; normal central venous pressures; no definitive evidence of echocardiographic tamponade; correlate clinically
--- NOTE | 2016-11-19 23:40 | CON ---
DATE: CARDIOLOGY CONSULT REQUESTED BY: Govind Hopper DO, hospitalist. LOCATION: At presently in ICU, bed #4. HISTORY OF PRESENT ILLNESS: Requested to see this 26-year-old male originally from [place], admitted with significant shortness of breath, cardiomegaly and severe hypertension. Since arrival to this institution, he has been treated with intravenous furosemide, oxygen via nasal cannula, BiPAP and he feels much, much better. Situation apparently began several years ago when he was told that he had high blood pressure. He was evaluated a year later by endocrinologist in the area, Dr. Linda Messina, who also found him to be significantly hypertensive and gave him some medications and he did not follow with the recommendations. Several months ago, he began noticing shortness of breath upon walking, mild exertion as well as edema of lower extremities. He came to the emergency room in this institution. He was found to be hypertensive and he was treated also for "bronchial asthma." At that time, he was given some medications and prescription. He never followed up with that time either. He mentioned that he was unable to buy or procure the medications due to some insurance problems. Over the last several days, he has had significant shortness of breath. He came to the emergency room, he was found to be in congestive heart failure with significant hypertension, blood pressure about 220/120. He was treated appropriately as mentioned above and right now including using of intravenous nitroglycerin and at this point in time, he feels much, much comfortable. He denies any chest discomfort. On arrival to the emergency room, multiple investigations performed including a chest x-ray, unfortunately was AP view, portable technique, disclosing some pulmonary congestion as well as significant cardiomegaly, but however, again, this was an AP view portable and almost worthless to talk about the heart size. On view of this, a stat echocardiogram was performed with use of contrast, Definity, demonstrating cardiomegaly, evidence of left ventricular hypertrophy and [id number] left ventricular systolic dysfunction as well as significant, severe diastolic dysfunction. No significant valvular abnormalities, mild degree of possible mitral regurgitation as well as aortic regurgitation, but nothing spectacular. In addition, he was found to have a small amount of pericardial effusion which was actually the reason to have the stat echocardiogram, but no evidence of impending cardiac tamponade. PAST MEDICAL HISTORY: Other than hypertension found years ago, nothing significant. FAMILY HISTORY: Mother is hypertensive, she was at the bedside during my examination and my interview. Father, nothing significant health pitts and siblings with no hypertension. SOCIAL HISTORY: He does not smoke or drink any alcohol. He denies any illicit drugs. ALLERGIES: HE IS ALLERGIC TO SHRIMP IN THE FORM OF A RASH AND SHORTNESS OF BREATH. REVIEW OF SYSTEMS: Other than the above mentioned, otherwise negative. PHYSICAL EXAMINATION: GENERAL: Reveals a young adult, male, obese, appears at this point in time in no cardiopulmonary distress. He is conversing quite well. He feels happy, mother at bedside and a young lady also arrived while I was there, I do not know who she was. VITAL SIGNS: Blood pressure on arrival as mentioned was in the range of 220 to 230 over 120 to 130, right now it is about 120/70 to 80. Continuous cardiac monitoring showing sinus rhythm, around 90 per minute. O2 saturation in BiPAP 99%. He is clinically afebrile. SKIN: Warm and dry. There is a trace of edema in both ankles and feet, have significantly decreased according to him from the recent past. HEAD, EARS, NOSE AND THROAT: Unremarkable at this point. NECK: Supple with no jugular vein distension. CHEST: Symmetrical expansion. LUNGS: Rodriguez relatively clear at this moment. No CV lines, rhonchi or localized crepitations. CARDIOLOGICAL EXAM: Jugular veins and carotids are normal. The precordium is unremarkable. No thrill. Auscultation reveals heart sounds normal in intensity with an S4 gallop, I did not appreciate any S3. ABDOMEN: Obese. No localized tenderness. CENTRAL NERVOUS SYSTEM: Unremarkable. COMPLEMENTARY DATA: Comprehensive profile shows the hypokalemia and evidence of renal insufficiency and creatinine of 2.0. CBC, nothing remarkable. One troponin borderline elevated, all due to heart failure. An electrocardiogram showing sinus rhythm, left ventricular hypertrophy type pattern. Chest x-ray, as I mentioned above in AP view, pulmonary congestion, obviously enlarged cardiac silhouette, but nothing can be further discussed. ProBNP elevated about 1800 or so. Echocardiogram, as I mentioned above, with enlarged cardiac chambers, concentric left ventricular hypertrophy, [id number] systolic and diastolic abnormality. Trace to small pericardial effusion as well had a fat pad. No tamponade physiology. 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 CONCLUSION AND SUGGESTIONS: Case discussed with Dr. Hopper and also with an iv therapy nurse. At present appears improving. I suggest to continue MICA inhibitors, loop diuretic as well as small amount of the beta estefanía, most likely carvedilol. Also, due to age and significant hypertension, etc., one perhaps would look at secondary causes of this severe hypertension such as pheochromocytoma, etc. Magdy Felton MD
[2016-11-20] MEDS ORDERED: Enoxaparin 120 mg Syringe SC SCH (06:00)
[2016-11-20 06:26] LABS: BASO # 0.3 K/uL (0.0-0.2); EOS % 0.1 % (0.0-4.0); HEMATOCRIT 38.9 % (35.0-51.0); LYMPH # 0.6 K/uL (1.0-4.3); LYMPH % 3.5 % (20.0-40.0); MEAN CELL VOLUME 82.2 fL (80.0-94.0); MEAN CORPUSCULAR HEMOGLOBIN 26.8 pg (27.0-31.0); MEAN CORPUSCULAR HGB CONC 32.6 g/dL (33.0-37.0); MEAN PLATELET VOLUME 11.7 fL (7.2-11.7); MONO # 0.7 K/uL (0.0-0.8); MONO % 4.5 % (0.0-10.0); PLATELET COUNT 225 K/uL (130-400); RED CELL DISTRIBUTION WIDTH 14.5 % (11.5-14.5); WHITE BLOOD COUNT 16.4 K/uL (4.8-10.8)
[2016-11-20 06:37] LABS: POTASSIUM 3.5 mmol/L (3.6-5.2)
[2016-11-20 06:39] LABS: ALB/GLOB RATIO 1.1 (1.0-2.1); BILIRUBIN,TOTAL 0.6 mg/dL (0.2-1.3); TOTAL PROTEIN 6.7 g/dL (6.3-8.3)
[2016-11-20 06:40] LABS: CALCIUM 8.8 mg/dl (8.6-10.4); MAGNESIUM 1.8 mg/dL (1.6-2.3)
[2016-11-20 07:08] LABS: THYROID STIMULATING HORMONE 0.7 mIU/L (0.46-4.68)
[2016-11-20 08:55] LABS: NEUTROPHIL 90 % (50-75); TOTAL CELLS COUNTED 100
--- NOTE | 2016-11-20 09:11 | CP.PCM.PN ---
Subjective - Date & Time of Evaluation Date of Evaluation: 11/20/16 Time of Evaluation: 08:00 - Subjective Subjective: Patient was seen and examined by me The patient reported feeling much better now. Denied headache, denied chest pain , denied shortness of breath, denied palpitations. He denied blurry vision and denied acute events overnight. His blood pressure is now much lower with the systolics in the 120s. He was still on the nitroglycerin ggt when I saw him in the morning. The troponins were borderline positive/elevated. The EKGs show T wave inversions in all leads. Echo returned and EF was 35%. Objective - Vital Signs/Intake and Output Vital Signs (last 24 hours): Temp Pulse Resp BP Pulse Ox 97.5 F L 76 21 115/78 97 11/20/16 08:00 11/20/16 08:00 11/20/16 08:00 11/20/16 07:44 11/20/16 08:00 Intake and Output: 11/20/16 11/20/16 06:59 18:59 Intake Total 276 82 Output Total 200 Balance 76 82 - Medications Medications: Current Medications Aspirin (Aspirin Chewable) 81 mg PO DAILY [facility] Enoxaparin Sodium (Lovenox) 120 mg SC Q12H [facility] Last Admin: 11/20/16 06:02 Dose: 120 mg Furosemide (Lasix) 20 mg IVP BID [facility] Last Admin: 11/19/16 18:16 Dose: 20 mg Nitroglycerin/Dextrose (Nitroglycerin 50 Mg/250 Ml D5w) 50 mg in 250 mls @ 1.5 mls/hr IV .Q24H STA; 5 MCG/MIN PRN Reason: Protocol Stop: 11/20/16 09:09 Last Titration: 11/20/16 07:36 Dose: 10 mcg/min, 3 mls/hr Heparin Sodium/Sodium Chloride (Heparin 06184 Units/250ml 1/2 Normal Saline) 25 ,000 units in 250 mls @ 17.64 mls/hr IV .[id number] PRN; Protocol; 15 UNITS/KG/HR PRN Reason: PROTOCOL Lisinopril (Zestril) 10 mg PO DAILY [facility] Last Admin: 11/19/16 16:30 Dose: 10 mg Potassium Chloride (K-Dur 20 Meq Er Tab) 40 meq PO DAILY [facility] Last Admin: 11/19/16 12:21 Dose: 40 meq Rosuvastatin Calcium (Crestor) 10 mg PO HS [facility] Last Admin: 11/19/16 21:05 Dose: 10 mg - Labs Labs: 11/20/16 06:20 11/20/16 06:20 PT 11.6 SECONDS (9.7-12.2) 11/19/16 07:55 INR 1.0 11/19/16 07:55 APTT 31 SECONDS (21-34) 11/19/16 07:55 - Constitutional Appears: Well, No Acute Distress - Head Exam Head Exam: NORMAL INSPECTION, NORMOCEPHALIC - Eye Exam Eye Exam: EOMI, Normal appearance - ENT Exam ENT Exam: Mucous Membranes Moist - Respiratory Exam Respiratory Exam: Clear to Ausculation Bilateral, NORMAL BREATHING PATTERN - Cardiovascular Exam Cardiovascular Exam: REGULAR RHYTHM - GI/Abdominal Exam GI & Abdominal Exam: Soft, Normal Bowel Sounds - Extremities Exam Extremities Exam: absent: Pedal Edema - Neurological Exam Neurological Exam: Alert, Awake, Oriented x3 Neuro motor strength exam: Left Upper Extremity: 5, Right Upper Extremity: 5, Left Lower Extremity: 5, Right Lower Extremity: 5 - Psychiatric Exam Psychiatric exam: Normal Affect, Normal Mood - Skin Skin Exam: Normal Color, Warm Assessment and Plan - Assessment and Plan (Free Text) Assessment: CHF/Shortness of breath - likely secondary from cardiomyopathy/hypokinesis 11/20: Feeling better today, echo was 35%. On MICA and statin. In light of the positive troponins, as well as T wave inversions all leads, the question now is if he will need further cardiac work up such as cardiac catherization. Changed from lovenox over to heparin ggt. 11/19: Pending the official echo results at this time, this being said I am being told he does not appear he has pericardial effusion/tamponade at this time. Also the way the EKG looks does not appear to be tamponade as size of his QRS complexes are not small and it does not appear to be alteran appearance. He will be on lasix IV as well as bipap as needed Because of his CHF/cardiomyopathy and elevated BP, will add on MICA-I now. Also start on ASA and statin. Cardiology evaluation is pending Repeat CXRAY tommorow The first troponin is elevated, probably from the stress. Lovenox 110 sc BID given. Trend additional cardiac enzymes. HTN Urgency/Emergency - improved - now currently on Tridil/nitroglycerin ggt. 11/19 Being titrated at this time. Also on Lasix Added on MICA-I Pending echo OLU on CKD, suspect the CKD from history of HTN: 11/20: Creatine opal to 2.7 from 2.0 on admission. Switch from lovenox over to heparin ggt. He is on lasix 20 IV BID, should the creatine increase he may need to stop lasix and potential nephrology consult. Continue to monitor Obstructive sleep apnea: 11/19 He will need an outpatient work up in the future. Corwin this long standing MARY is contributing to his CHF and cardiomyopathy.
--- NOTE | 2016-11-20 09:47 | RAD ---
HISTORY: shortness of breath, cardiomyopathy COMPARISON: Chest x-ray performed 11/19/16 TECHNIQUE: Chest, one view. FINDINGS: Examination limited by habitus. LUNGS: Mild central vascular congestion. No focal consolidation. PLEURA: No significant pleural effusion identified. No definite pneumothorax . CARDIOVASCULAR: Cardiomegaly. OSSEOUS STRUCTURES: No acute osseous abnormality identified. VISUALIZED UPPER ABDOMEN: Unremarkable. OTHER FINDINGS: None. IMPRESSION: Marked cardiomegaly. Mild central vascular congestion.
[2016-11-20] MEDS: Potassium Chloride 20 mEq ER Tab PO SCH (09:59)
[2016-11-20] MEDS: Heparin25000 units/250ml 1/2NS 25,000 UNITS/250 ML BAG IV PRN ×2 (10:00→23:32)
--- NOTE | 2016-11-20 18:38 | CARD ---
APPROVED REPORT EKG Measurement Heart [id number] SC 156P3 [id number] <Conclusion> Normal sinus rhythm Possible Left atrial enlargement LVH with repolarization abnormality. Prolonged QT Abnormal ECG
--- NOTE | 2016-11-20 18:39 | CARD ---
APPROVED REPORT EKG Measurement Heart [id number] MA 158P33 [id number] <Conclusion> Normal sinus rhythm Possible Left atrial enlargement LVH with repolarization abnormality. Prolonged QT Abnormal ECG
--- NOTE | 2016-11-20 18:40 | CARD ---
APPROVED REPORT EKG Measurement Heart [id number] [place] 152P19 [id number] <Conclusion> Sinus tachycardia Possible Left atrial enlargement Left ventricular hypertrophy Abnormal ECG
--- NOTE | 2016-11-20 19:21 | CP.CCUPN ---
CCU Subjective - Physician Review Events Since Last Encounter (Free Text): Patient seen and examined at bedside. Patient with no complaints, saying he feels much better today. He denied chest pain, shortness of breath, n/v/d/c, f/c , palpitations, blurry vision, headache. 11/20/16 19:19 CCU Objective - Vital Signs / Intake & Output Vital Signs (Last 4 hours): Vital Signs Temp Pulse Resp BP Pulse Ox 11/20/16 19:14 86 25 H 135/71 98 11/20/16 19:01 86 21 130/76 99 11/20/16 19:00 76 24 98 11/20/16 18:44 78 20 138/86 98 11/20/16 18:30 80 21 97 11/20/16 18:14 74 18 138/90 97 11/20/16 18:00 78 22 97 11/20/16 17:44 64 21 128/80 97 11/20/16 17:39 120/73 11/20/16 17:30 74 17 98 11/20/16 17:14 75 15 120/73 99 11/20/16 17:00 79 18 97 11/20/16 16:44 75 18 129/71 98 11/20/16 16:30 71 19 96 11/20/16 16:14 77 23 130/74 100 11/20/16 16:00 98.0 F 84 22 97 11/20/16 15:44 73 16 105/56 L 96 11/20/16 15:30 78 18 97 11/20/16 15:22 73 22 103/56 L 99 Intake and Output (Last 8hrs): Intake & Output 11/20/16 11/20/16 11/20/16 06:59 14:59 22:59 Intake Total 77 802.8 476.0 Output Total 500 700 Balance 77 302.8 -224.0 Weight 259 lb 4.218 oz Intake: IV 26 70 15 Intake, IV Amount 51 82.8 91.0 Right Upper arm 51 30 3 Right Upper arm side port 52.8 88.0 Oral 650 370 Output: Urine 500 700 Urine, Voided 500 700 Other: # Voids Urine, Voided 0 0 # Bowel Movements 0 0 - Physical Exam Head: Positive for: Atraumatic Pupils: Positive for: PERRL Extroacular Muscles: Positive for: EOMI Mouth: Positive for: Moist Mucous Membranes Neck: Positive for: Normal Range of Motion Respiratory/Chest: Positive for: Clear to Auscultation. Negative for: Wheezes, Rales, Rhonchi Cardiovascular: Positive for: Regular Rate and Rhythm, Normal S1, S2 Abdomen: Positive for: Normal Bowel Sounds. Negative for: Tenderness - Medications Active Medications: Active Medications Generic Name Dose Route Start Last Admin Trade Name Freq PRN Reason Stop Dose Admin Aspirin 81 mg 11/20/16 10:00 11/20/16 10:00 Aspirin Chewable PO 81 mg DAILY [facility] Administration Famotidine 20 mg 11/21/16 10:00 Pepcid PO DAILY [facility] Furosemide 20 mg 11/19/16 18:00 11/20/16 17:39 Lasix IVP 20 mg BID [facility] Administration Heparin Sodium/Sodium Chloride 25,000 units in 250 mls @ 17.64 mls/hr 09:07 11/20/16 10:00 Heparin 54186 Units/250ml 1/2 Normal Saline IV 15 units/kg/hr .[id number] PRN 17.64 mls/hr PROTOCOL Administration Protocol 15 UNITS/KG/HR Lisinopril 10 mg 11/19/16 15:15 11/20/16 09:59 Zestril PO 10 mg DAILY [facility] Administration Potassium Chloride 40 meq 11/19/16 11:45 11/20/16 09:59 K-Dur 20 Meq Er Tab PO 40 meq DAILY [facility] Administration Rosuvastatin Calcium 10 mg 11/19/16 22:00 11/19/16 21:05 Crestor PO 10 mg HS [facility] Administration - Patient Studies Lab Studies: Microbiology Studies 11/19/16 14:58 MRSA Culture (Admit) - Final Nose MRSA NOT DETECTED Lab Studies 11/20/16 11/20/16 11/20/16 Range/Units 16:03 12:45 06:20 WBC (4.8-10.8) K/uL RBC (4.40-5.90) Mil/uL Hgb (12.0-18.0) g/dL Hct (35.0-51.0) % MCV (80.0-94.0) fL MCH (27.0-31.0) pg MCHC (33.0-37.0) g/dL RDW (11.5-14.5) % Plt Count (130-400) K/uL MPV (7.2-11.7) fL Neut % (Auto) (50.0-75.0) % Lymph % (Auto) (20.0-40.0) % [place] % (Auto) (0.0-10.0) % Eos % (Auto) (0.0-4.0) % Baso % (Auto) (0.0-2.0) % Neut # (1.8-7.0) K/uL Lymph # (1.0-4.3) K/uL [place] # (0.0-0.8) K/uL Eos # (0.0-0.7) K/uL Baso # (0.0-0.2) K/uL Neutrophils % (Manual) (50-75) % Lymphocytes % (Manual) (20-40) % Monocytes % (Manual) (0-10) % Platelet Estimate (NORMAL) RBC Morphology APTT 81 H D (21-34) SECONDS Sodium (132-148) mmol/L Potassium (3.6-5.2) mmol/L Chloride (98-107) mmol/L Carbon Dioxide (22-30) mmol/L Anion Gap (10-20) BUN (9-20) mg/dL Creatinine (0.8-1.5) MG/DL Est GFR ( Amer) Est GFR (Non-Af Amer) Random Glucose (75-110) mg/dL Calcium (8.6-10.4) mg/dl Phosphorus (2.5-4.5) mg/dL Magnesium (1.6-2.3) mg/dL Total Bilirubin (0.2-1.3) mg/dL AST (17-59) U/L ALT (21-72) U/L Alkaline Phosphatase (38-126) U/L Total Creatine Kinase (55-170) U/L CK-MB (Mass) (0.0-3.38) ng/mL Troponin I, Quant (0.00-0.120) ng/mL Total Protein (6.3-8.3) g/dL Albumin (3.5-5.0) g/dL Globulin (2.2-3.9) gm/dL Albumin/Globulin Ratio (1.0-2.1) TSH 3rd Generation (0.46-4.68) mIU/L Urine Opiates Screen Negative (NEGATIVE) Urine Methadone Screen Negative (NEGATIVE) Ur Barbiturates Screen Negative (NEGATIVE) Ur Phencyclidine Scrn Negative (NEGATIVE) Ur Amphetamines Screen Negative (NEGATIVE) U Benzodiazepines Scrn Negative (NEGATIVE) U Oth Cocaine Metabols Negative (NEGATIVE) U Cannabinoids Screen Negative (NEGATIVE) CRAIG 6 Profile Negative (NEGATIVE) 11/20/16 11/20/16 11/19/16 Range/Units 06:20 06:20 20:33 WBC 16.4 H D (4.8-10.8) K/uL RBC 4.73 (4.40-5.90) Mil/uL Hgb 12.7 (12.0-18.0) g/dL Hct 38.9 (35.0-51.0) % MCV 82.2 (80.0-94.0) fL MCH 26.8 L (27.0-31.0) pg MCHC 32.6 L (33.0-37.0) g/dL RDW 14.5 (11.5-14.5) % Plt Count 225 (130-400) K/uL MPV 11.7 (7.2-11.7) fL Neut % (Auto) 89.9 H (50.0-75.0) % Lymph % (Auto) 3.5 L (20.0-40.0) % [place] % (Auto) 4.5 (0.0-10.0) % Eos % (Auto) 0.1 (0.0-4.0) % Baso % (Auto) 2.0 (0.0-2.0) % Neut # 14.7 H (1.8-7.0) K/uL Lymph # 0.6 L (1.0-4.3) K/uL [place] # 0.7 (0.0-0.8) K/uL Eos # 0.0 (0.0-0.7) K/uL Baso # 0.3 H (0.0-0.2) K/uL Neutrophils % (Manual) 90 H (50-75) % Lymphocytes % (Manual) 4 L (20-40) % Monocytes % (Manual) 6 (0-10) % Platelet Estimate Normal (NORMAL) RBC Morphology Normal APTT (21-34) SECONDS Sodium 140 (132-148) mmol/L Potassium 3.5 L (3.6-5.2) mmol/L Chloride 107 (98-107) mmol/L Carbon Dioxide 22 (22-30) mmol/L Anion Gap 15 (10-20) BUN 44 H (9-20) mg/dL Creatinine 2.7 H (0.8-1.5) MG/DL Est GFR ( Amer) 35 Est GFR (Non-Af Amer) 29 Random Glucose 95 (75-110) mg/dL Calcium 8.8 (8.6-10.4) mg/dl Phosphorus 4.0 (2.5-4.5) mg/dL Magnesium 1.8 (1.6-2.3) mg/dL Total Bilirubin 0.6 (0.2-1.3) mg/dL AST 23 (17-59) U/L ALT 39 (21-72) U/L Alkaline Phosphatase 44 (38-126) U/L Total Creatine Kinase 78 109 (55-170) U/L CK-MB (Mass) 1.78 1.74 (0.0-3.38) ng/mL Troponin I, Quant 0.1320 H* 0.1270 H* (0.00-0.120) ng/mL Total Protein 6.7 (6.3-8.3) g/dL Albumin 3.5 (3.5-5.0) g/dL Globulin 3.1 (2.2-3.9) gm/dL Albumin/Globulin Ratio 1.1 (1.0-2.1) TSH 3rd Generation 0.70 (0.46-4.68) mIU/L Urine Opiates Screen (NEGATIVE) Urine Methadone Screen (NEGATIVE) Ur Barbiturates Screen (NEGATIVE) Ur Phencyclidine Scrn (NEGATIVE) Ur Amphetamines Screen (NEGATIVE) U Benzodiazepines Scrn (NEGATIVE) U Oth Cocaine Metabols (NEGATIVE) U Cannabinoids Screen (NEGATIVE) CRAIG 6 Profile (NEGATIVE) Laboratory Results - last 24 hr 11/19/16 11/20/16 11/20/16 20:33 06:20 06:20 WBC 16.4 H D RBC 4.73 Hgb 12.7 Hct 38.9 MCV 82.2 MCH 26.8 L MCHC 32.6 L RDW 14.5 Plt Count 225 MPV 11.7 Neut % (Auto) 89.9 H Lymph % (Auto) 3.5 L [place] % (Auto) 4.5 Eos % (Auto) 0.1 Baso % (Auto) 2.0 Neut # 14.7 H Lymph # 0.6 L [place] # 0.7 Eos # 0.0 Baso # 0.3 H Neutrophils % (Manual) 90 H Lymphocytes % (Manual) 4 L Monocytes % (Manual) 6 Platelet Estimate Normal RBC Morphology Normal APTT Sodium 140 Potassium 3.5 L Chloride 107 Carbon Dioxide 22 Anion Gap 15 BUN 44 H Creatinine 2.7 H Est GFR ( Amer) 35 Est GFR (Non-Af Amer) 29 Random Glucose 95 Calcium 8.8 Phosphorus 4.0 Magnesium 1.8 Total Bilirubin 0.6 AST 23 ALT 39 Alkaline Phosphatase 44 Total Creatine Kinase 109 78 CK-MB (Mass) 1.74 1.78 Troponin I, Quant 0.1270 H* 0.1320 H* Total Protein 6.7 Albumin 3.5 Globulin 3.1 Albumin/Globulin Ratio 1.1 TSH 3rd Generation 0.70 Urine Opiates Screen Urine Methadone Screen Ur Barbiturates Screen Ur Phencyclidine Scrn Ur Amphetamines Screen U Benzodiazepines Scrn U Oth Cocaine Metabols U Cannabinoids Screen CRAIG 6 Profile 11/20/16 11/20/16 11/20/16 06:20 12:45 16:03 WBC RBC Hgb Hct MCV MCH MCHC RDW Plt Count MPV Neut % (Auto) Lymph % (Auto) [place] % (Auto) Eos % (Auto) Baso % (Auto) Neut # Lymph # [place] # Eos # Baso # Neutrophils % (Manual) Lymphocytes % (Manual) Monocytes % (Manual) Platelet Estimate RBC Morphology APTT 81 H D Sodium Potassium Chloride Carbon Dioxide Anion Gap BUN Creatinine Est GFR ( Amer) Est GFR (Non-Af Amer) Random Glucose Calcium Phosphorus Magnesium Total Bilirubin AST ALT Alkaline Phosphatase Total Creatine Kinase CK-MB (Mass) Troponin I, Quant Total Protein Albumin Globulin Albumin/Globulin Ratio TSH 3rd Generation Urine Opiates Screen Negative Urine Methadone Screen Negative Ur Barbiturates Screen Negative Ur Phencyclidine Scrn Negative Ur Amphetamines Screen Negative U Benzodiazepines Scrn Negative U Oth Cocaine Metabols Negative U Cannabinoids Screen Negative CRAIG 6 Profile Negative EKG/Cardiology Studies: Cardiology / EKG Studies 11/19/16 20:00 EKG [ELECTROCARDIOGRAM] Timed Comment: Mode Of Transportation: Reason For Exam: cardiomegaly Review of Systems - Constitutional Constitutional: absent: Fever, Chills - EENT Eyes: UNREMARKABLE - Cardiovascular Cardiovascular: UNREMARKABLE - Respiratory Respiratory: UNREMARKABLE - Gastrointestinal Gastrointestinal: UNREMARKABLE - Genitourinary Genitourinary: UNREMARKABLE - Neurological Neurological: UNREMARKABLE Critical Care Progress Note - Nutrition Nutrition: Nutrition Category Date Time Status Heart Healthy Diet [DIET] Diets 11/19/16 Dinner Active Assessment/Plan - Assessment and Plan (Free Text) Assessment: 26 yo M with PMHx of asthma, bronchitis, presenting with shortness of breath and pressure-like chest pain. Patient found to have hypertensive urgency, CXR showing severe cardiomegaly. Cardiovascular: HTN urgency; cardiomegaly; CHF w/ EF of 35%, will need further cardiac workup possibly cardiac catheterization - cardiomegaly likely 2/2 cardiomyopathy/hypokinesis - tridil/nitroglycerin ggt - first troponin elevated, second troponin normal, third and fourth troponin borderline elevated - possibly from stress - repeat ekg's show T wave inversions in all leads - ECHO: EF 35% - aspiring 81mg po daily, heparin ggt, lisinopril 10mg po daily, rosuvastatin 10mg po hs - pro-bnp 1810 - In/Outs, daily weight measurements Pulmonary: shortness of breath - shortness of breath likely 2/2 cardiomyopathy/hypokinesis - furosemide 20mg iv bid - breathing comfortably on bipap Renal: Cr rising to 2.1 from 2 on admission. - Switched from lovenox to heparin ggt. - monitor and consider nephro consult if Cr continues to rise Endocrine: r/o endocrine etiology for cardiomegaly - TSH, F/U - CRAIG, F/U Prophylaxis: DVT: lovenox 120mg sc q12 GI: Diet: heart healthy All other organ systems with no active issues
[2016-11-21 06:21] LABS: BASO # 0.1 K/uL (0.0-0.2); BASO % 0.6 % (0.0-2.0); EOS # 0.1 K/uL (0.0-0.7); EOS % 0.6 % (0.0-4.0); HEMATOCRIT 41.3 % (35.0-51.0); LYMPH # 2.6 K/uL (1.0-4.3); LYMPH % 23.5 % (20.0-40.0); MEAN CELL VOLUME 82.2 fL (80.0-94.0); MEAN CORPUSCULAR HEMOGLOBIN 26.8 pg (27.0-31.0); MEAN CORPUSCULAR HGB CONC 32.6 g/dL (33.0-37.0); MEAN PLATELET VOLUME 11.2 fL (7.2-11.7); MONO # 1.2 K/uL (0.0-0.8); MONO % 10.4 % (0.0-10.0); RED CELL DISTRIBUTION WIDTH 14.3 % (11.5-14.5); WHITE BLOOD COUNT 11.1 K/uL (4.8-10.8)
[2016-11-21 06:34] LABS: CALCIUM 8.9 mg/dl (8.6-10.4); POTASSIUM 3.3 mmol/L (3.6-5.2)
[2016-11-21] MEDS ORDERED: Potassium Chloride 20 mEq/15 ml LIQ UD PO ONE (07:44)
[2016-11-21] MEDS: Potassium Chloride 20 mEq ER Tab PO SCH (09:37)
--- NOTE | 2016-11-21 15:07 | CP.PCM.PN ---
Subjective - Date & Time of Evaluation Date of Evaluation: 11/21/16 Time of Evaluation: 15:00 - Subjective Subjective: Patient was seen and examined by me. The patient is pending transfer out of the ICU to telemetry. He reports feeling well. He denied chest pain, denied shortness of breath, denied abdominal pain, denied palpitations. He is now off of the nitroglycerin ggt. Objective - Vital Signs/Intake and Output Vital Signs (last 24 hours): Temp Pulse Resp BP Pulse Ox 98 F 87 15 159/95 H 97 11/21/16 12:00 11/21/16 14:02 11/21/16 14:00 11/21/16 13:34 11/21/16 08:14 Intake and Output: 11/21/16 11/21/16 06:59 18:59 Intake Total 461.2 967.8 Output Total 950 400 Balance -488.8 567.8 - Medications Medications: Current Medications Aspirin (Aspirin Chewable) 81 mg PO DAILY [facility] Last Admin: 11/21/16 09:37 Dose: 81 mg Famotidine (Pepcid) 20 mg PO DAILY [facility] Last Admin: 11/21/16 09:37 Dose: 20 mg Furosemide (Lasix) 20 mg IVP BID [facility] Last Admin: 11/21/16 09:37 Dose: 20 mg Heparin Sodium/Sodium Chloride (Heparin 59246 Units/250ml 1/2 Normal Saline) 25 ,000 units in 250 mls @ 17.64 mls/hr IV .[id number] PRN; Protocol; 15 UNITS/KG/HR PRN Reason: PROTOCOL Last Titration: 11/21/16 07:30 Dose: 12 units/kg/hr, 14.112 mls/hr Lisinopril (Zestril) 10 mg PO DAILY [facility] Last Admin: 11/21/16 09:37 Dose: 10 mg Potassium Chloride (K-Dur 20 Meq Er Tab) 40 meq PO DAILY [facility] Last Admin: 11/21/16 09:37 Dose: 40 meq Rosuvastatin Calcium (Crestor) 10 mg PO HS [facility] Last Admin: 11/20/16 21:03 Dose: 10 mg - Labs Labs: 11/21/16 06:12 11/21/16 06:12 PT 11.6 SECONDS (9.7-12.2) 11/19/16 07:55 INR 1.0 11/19/16 07:55 APTT 61 SECONDS (21-34) H D 11/21/16 12:42 - Constitutional Appears: Well, Non-toxic, No Acute Distress - Head Exam Head Exam: NORMAL INSPECTION, NORMOCEPHALIC - Eye Exam Eye Exam: EOMI, Normal appearance - ENT Exam ENT Exam: Mucous Membranes Moist - Respiratory Exam Respiratory Exam: Clear to Ausculation Bilateral, NORMAL BREATHING PATTERN - Cardiovascular Exam Cardiovascular Exam: REGULAR RHYTHM - Neurological Exam Neurological Exam: Alert, Awake, Oriented x3 Neuro motor strength exam: Left Upper Extremity: 5, Right Upper Extremity: 5, Left Lower Extremity: 5, Right Lower Extremity: 5 - Psychiatric Exam Psychiatric exam: Normal Affect, Normal Mood - Skin Skin Exam: Normal Color, Warm Assessment and Plan - Assessment and Plan (Free Text) Assessment: CHF/Shortness of breath - likely secondary from cardiomyopathy/hypokinesis 11/21: Now off of the nitroglycerin ggt. Breathing improved, the CXRAY still showing some mild venous congestion. Continue on lasix 11/20: Feeling better today, echo was 35%. On MICA and statin. In light of the positive troponins, as well as T wave inversions all leads, the question now is if he will need further cardiac work up such as cardiac catherization. Changed from lovenox over to heparin ggt. 11/19: Pending the official echo results at this time, this being said I am being told he does not appear he has pericardial effusion/tamponade at this time. Also the way the EKG looks does not appear to be tamponade as size of his QRS complexes are not small and it does not appear to be alteran appearance. He will be on lasix IV as well as bipap as needed Because of his CHF/cardiomyopathy and elevated BP, will add on MICA-I now. Also start on ASA and statin. Cardiology evaluation is pending Repeat CXRAY tommorow The first troponin is elevated, probably from the stress. Lovenox 110 sc BID given. Trend additional cardiac enzymes. HTN Urgency/Emergency - improved - n 11/21: Now off of the nitroglycerin ggt. His systolic BPs are high in the 150s and 160s. Will start hydralazinr 25 PO TID and also Norvasc 10 QD 11/19 Being titrated at this time. Also on Lasix Added on MICA-I OLU on CKD, suspect the CKD from history of HTN: 11/20: Creatine opal to 2.7 from 2.0 on admission. Switch from lovenox over to heparin ggt. He is on lasix 20 IV BID, should the creatine increase he may need to stop lasix and potential nephrology consult. Continue to monitor Obstructive sleep apnea: 11/19 He will need an outpatient work up in the future. Corwin this long standing MARY is contributing to his CHF and cardiomyopathy.
--- NOTE | 2016-11-21 18:40 | CP.CCUPN ---
CCU Objective - Vital Signs / Intake & Output Vital Signs (Last 4 hours): Vital Signs Temp Pulse Resp BP 11/21/16 17:38 145/94 H 11/21/16 17:34 79 10 L 145/94 H 11/21/16 17:29 77 18 142/85 11/21/16 17:00 77 19 11/21/16 16:00 96.7 F L 63 21 11/21/16 15:35 88 21 129/55 L 11/21/16 15:00 88 13 Intake and Output (Last 8hrs): Intake & Output 11/21/16 11/21/16 11/21/16 06:59 14:59 22:59 Intake Total 390.8 967.8 356.4 Output Total 400 Balance 390.8 567.8 356.4 Intake: IV 250 105 Intake, IV Amount 140.8 112.8 56.4 Right Upper arm side port 140.8 112.8 56.4 Oral 750 300 Output: Urine 400 Urine, Voided 400 Other: # Voids Urine, Voided 1 # Bowel Movements 1 - Physical Exam Head: Positive for: Atraumatic Pupils: Positive for: PERRL Extroacular Muscles: Positive for: EOMI Mouth: Positive for: Moist Mucous Membranes Neck: Positive for: Normal Range of Motion Respiratory/Chest: Positive for: Clear to Auscultation. Negative for: Wheezes, Rales, Rhonchi Cardiovascular: Positive for: Regular Rate and Rhythm, Normal S1, S2 Abdomen: Positive for: Normal Bowel Sounds. Negative for: Tenderness - Medications Active Medications: Active Medications Generic Name Dose Route Start Last Admin Trade Name Aidenq PRN Reason Stop Dose Admin Amlodipine Besylate 10 mg 11/21/16 15:15 11/21/16 16:15 Norvasc PO 10 mg DAILY ARUN Administration Aspirin 81 mg 11/20/16 10:00 11/21/16 09:37 Aspirin Chewable PO 81 mg DAILY ARUN Administration Famotidine 20 mg 11/21/16 10:00 11/21/16 09:37 Pepcid PO 20 mg DAILY ARUN Administration Furosemide 20 mg 11/19/16 18:00 11/21/16 17:38 Lasix IVP 20 mg BID ARUN Administration Hydralazine HCl 25 mg 11/21/16 18:00 11/21/16 17:39 Apresoline PO 25 mg TID ARUN Administration Heparin Sodium/Sodium Chloride 25,000 units in 250 mls @ 17.64 mls/hr 09:07 11/21/16 07:30 Heparin 81019 Units/250ml 1/2 Normal Saline IV 12 units/kg/hr .[id number] PRN 14.112 mls/hr PROTOCOL Titration Protocol 15 UNITS/KG/HR Lisinopril 10 mg 11/19/16 15:15 11/21/16 09:37 Zestril PO 10 mg DAILY ARUN Administration Potassium Chloride 40 meq 11/19/16 11:45 11/21/16 09:37 K-Dur 20 Meq Er Tab PO 40 meq DAILY ARUN Administration Rosuvastatin Calcium 10 mg 11/19/16 22:00 11/20/16 21:03 Crestor PO 10 mg HS ARUN Administration - Patient Studies Lab Studies: Microbiology Studies 11/19/16 14:58 MRSA Culture (Admit) - Final Nose MRSA NOT DETECTED Lab Studies 11/21/16 11/21/16 11/21/16 Range/Units 12:42 06:12 06:12 WBC (4.8-10.8) K/uL RBC (4.40-5.90) Mil/uL Hgb (12.0-18.0) g/dL Hct (35.0-51.0) % MCV (80.0-94.0) fL MCH (27.0-31.0) pg MCHC (33.0-37.0) g/dL RDW (11.5-14.5) % Plt Count (130-400) K/uL MPV (7.2-11.7) fL Neut % (Auto) (50.0-75.0) % Lymph % (Auto) (20.0-40.0) % [place] % (Auto) (0.0-10.0) % Eos % (Auto) (0.0-4.0) % Baso % (Auto) (0.0-2.0) % Neut # (1.8-7.0) K/uL Lymph # (1.0-4.3) K/uL [place] # (0.0-0.8) K/uL Eos # (0.0-0.7) K/uL Baso # (0.0-0.2) K/uL APTT 61 H D 104 H* D (21-34) SECONDS Sodium 143 (132-148) mmol/L Potassium 3.3 L (3.6-5.2) mmol/L Chloride 105 (98-107) mmol/L Carbon Dioxide 25 (22-30) mmol/L Anion Gap 16 (10-20) BUN 41 H (9-20) mg/dL Creatinine 2.0 H (0.8-1.5) MG/DL Est GFR ( Amer) 50 Est GFR (Non-Af Amer) 41 Random Glucose 86 (75-110) mg/dL Calcium 8.9 (8.6-10.4) mg/dl 11/21/16 11/20/16 Range/Units 06:12 22:25 WBC 11.1 H (4.8-10.8) K/uL RBC 5.02 (4.40-5.90) Mil/uL Hgb 13.5 (12.0-18.0) g/dL Hct 41.3 (35.0-51.0) % MCV 82.2 (80.0-94.0) fL MCH 26.8 L (27.0-31.0) pg MCHC 32.6 L (33.0-37.0) g/dL RDW 14.3 (11.5-14.5) % Plt Count 207 (130-400) K/uL MPV 11.2 (7.2-11.7) fL Neut % (Auto) 64.9 (50.0-75.0) % Lymph % (Auto) 23.5 (20.0-40.0) % [place] % (Auto) 10.4 H (0.0-10.0) % Eos % (Auto) 0.6 (0.0-4.0) % Baso % (Auto) 0.6 (0.0-2.0) % Neut # 7.2 H (1.8-7.0) K/uL Lymph # 2.6 (1.0-4.3) K/uL [place] # 1.2 H (0.0-0.8) K/uL Eos # 0.1 (0.0-0.7) K/uL Baso # 0.1 (0.0-0.2) K/uL APTT 91 H D (21-34) SECONDS Sodium (132-148) mmol/L Potassium (3.6-5.2) mmol/L Chloride (98-107) mmol/L Carbon Dioxide (22-30) mmol/L Anion Gap (10-20) BUN (9-20) mg/dL Creatinine (0.8-1.5) MG/DL Est GFR ( Amer) Est GFR (Non-Af Amer) Random Glucose (75-110) mg/dL Calcium (8.6-10.4) mg/dl Laboratory Results - last 24 hr 11/20/16 11/21/16 11/21/16 22:25 06:12 06:12 WBC 11.1 H RBC 5.02 Hgb 13.5 Hct 41.3 MCV 82.2 MCH 26.8 L MCHC 32.6 L RDW 14.3 Plt Count 207 MPV 11.2 Neut % (Auto) 64.9 Lymph % (Auto) 23.5 [place] % (Auto) 10.4 H Eos % (Auto) 0.6 Baso % (Auto) 0.6 Neut # 7.2 H Lymph # 2.6 [place] # 1.2 H Eos # 0.1 Baso # 0.1 APTT 91 H D Sodium 143 Potassium 3.3 L Chloride 105 Carbon Dioxide 25 Anion Gap 16 BUN 41 H Creatinine 2.0 H Est GFR ( Amer) 50 Est GFR (Non-Af Amer) 41 Random Glucose 86 Calcium 8.9 11/21/16 11/21/16 06:12 12:42 WBC RBC Hgb Hct MCV MCH MCHC RDW Plt Count MPV Neut % (Auto) Lymph % (Auto) [place] % (Auto) Eos % (Auto) Baso % (Auto) Neut # Lymph # [place] # Eos # Baso # APTT 104 H* D 61 H D Sodium Potassium Chloride Carbon Dioxide Anion Gap BUN Creatinine Est GFR ( Amer) Est GFR (Non-Af Amer) Random Glucose Calcium Critical Care Progress Note - Nutrition Nutrition: Nutrition Category Date Time Status Heart Healthy Diet [DIET] Diets 11/19/16 Dinner Active
[2016-11-21] MEDS: Heparin25000 units/250ml 1/2NS 25,000 UNITS/250 ML BAG IV PRN (20:01)
[2016-11-22 06:50] LABS: BASO # 0.1 K/uL (0.0-0.2); BASO % 0.8 % (0.0-2.0); EOS # 0.2 K/uL (0.0-0.7); EOS % 2.3 % (0.0-4.0); HEMATOCRIT 41.9 % (35.0-51.0); LYMPH # 2.1 K/uL (1.0-4.3); MEAN CELL VOLUME 82.6 fL (80.0-94.0); MEAN CORPUSCULAR HEMOGLOBIN 27.3 pg (27.0-31.0); MEAN PLATELET VOLUME 11.6 fL (7.2-11.7); MONO # 0.8 K/uL (0.0-0.8); MONO % 10.7 % (0.0-10.0); NRBC % 0.1 % (0.0-2.0); RED CELL DISTRIBUTION WIDTH 14.6 % (11.5-14.5); WHITE BLOOD COUNT 7.5 K/uL (4.8-10.8)
[2016-11-22 07:01] LABS: POTASSIUM 3.8 mmol/L (3.6-5.2)
[2016-11-22 07:05] LABS: CALCIUM 9.2 mg/dl (8.6-10.4)
[2016-11-22 09:05] VITALS: O2SAT 98
[2016-11-22] MEDS: Potassium Chloride 20 mEq ER Tab PO SCH (09:19)
[2016-11-22 12:41] VITALS: TEMP 98.4
[2016-11-22 15:21] VITALS: BP 126/90; PULSE 78; RESP 19
--- NOTE | 2016-11-22 17:12 | CP.PCM.DIS ---
<Ele Moncada - Last Filed: 11/23/16 07:37> Provider - Provider Date of Admission: 11/19/16 09:33 Attending physician: Govind Hopper DO Consults: Cardiology, Dr. Felton Thoracic Surgery, Dr. Ocampo Critical Care, Dr. Peres Time Spent in preparation of Discharge (in minutes): 35 Diagnosis - Discharge Diagnosis (1) Acute CHF Status: Acute (2) Hypertensive emergency Status: Acute (3) Obstructive sleep apnea Status: Acute Hospital Course - Lab Results Lab Results: Micro Results 11/19/16 14:58 Nose MRSA Culture (Admit) - Final MRSA NOT DETECTED Most Recent Lab Values WBC 7.5 K/uL (4.8-10.8) 11/22/16 06:40 RBC 5.08 Mil/uL (4.40-5.90) 11/22/16 06:40 Hgb 13.8 g/dL (12.0-18.0) 11/22/16 06:40 Hct 41.9 % (35.0-51.0) 11/22/16 06:40 MCV 82.6 fL (80.0-94.0) 11/22/16 06:40 MCH 27.3 pg (27.0-31.0) 11/22/16 06:40 MCHC 33.0 g/dL (33.0-37.0) 11/22/16 06:40 RDW 14.6 % (11.5-14.5) H 11/22/16 06:40 Plt Count 234 K/uL (130-400) 11/22/16 06:40 MPV 11.6 fL (7.2-11.7) 11/22/16 06:40 Neut % (Auto) 58.2 % (50.0-75.0) 11/22/16 06:40 Lymph % (Auto) 28.0 % (20.0-40.0) 11/22/16 06:40 [place] % (Auto) 10.7 % (0.0-10.0) H 11/22/16 06:40 Eos % (Auto) 2.3 % (0.0-4.0) 11/22/16 06:40 Baso % (Auto) 0.8 % (0.0-2.0) 11/22/16 06:40 Neut # 4.4 K/uL (1.8-7.0) 11/22/16 06:40 Lymph # 2.1 K/uL (1.0-4.3) 11/22/16 06:40 [place] # 0.8 K/uL (0.0-0.8) 11/22/16 06:40 Eos # 0.2 K/uL (0.0-0.7) 11/22/16 06:40 Baso # 0.1 K/uL (0.0-0.2) 11/22/16 06:40 Neutrophils % (Manual) 90 % (50-75) H 11/20/16 06:20 Lymphocytes % (Manual) 4 % (20-40) L 11/20/16 06:20 Monocytes % (Manual) 6 % (0-10) 11/20/16 06:20 Platelet Estimate Normal (NORMAL) 11/20/16 06:20 RBC Morphology Normal 11/20/16 06:20 PT 11.6 SECONDS (9.7-12.2) 11/19/16 07:55 INR 1.0 11/19/16 07:55 APTT 66 SECONDS (21-34) H D 11/22/16 06:40 Sodium 138 mmol/L (132-148) 11/22/16 06:40 Potassium 3.8 mmol/L (3.6-5.2) 11/22/16 06:40 Chloride 103 mmol/L (98-107) 11/22/16 06:40 Carbon Dioxide 26 mmol/L (22-30) 11/22/16 06:40 Anion Gap 13 (10-20) 11/22/16 06:40 BUN 33 mg/dL (9-20) H 11/22/16 06:40 Creatinine 1.8 MG/DL (0.8-1.5) H 11/22/16 06:40 Est GFR ( Amer) 56 11/22/16 06:40 Est GFR (Non-Af Amer) 46 11/22/16 06:40 Random Glucose 80 mg/dL (75-110) 11/22/16 06:40 Calcium 9.2 mg/dl (8.6-10.4) 11/22/16 06:40 Phosphorus 4.0 mg/dL (2.5-4.5) 11/20/16 06:20 Magnesium 1.8 mg/dL (1.6-2.3) 11/20/16 06:20 Total Bilirubin 0.6 mg/dL (0.2-1.3) 11/20/16 06:20 AST 23 U/L (17-59) 11/20/16 06:20 ALT 39 U/L (21-72) 11/20/16 06:20 Alkaline Phosphatase 44 U/L (38-126) 11/20/16 06:20 Total Creatine Kinase 78 U/L (55-170) 11/20/16 06:20 CK-MB (Mass) 1.78 ng/mL (0.0-3.38) 11/20/16 06:20 Troponin I 0.1660 ng/mL (0.00-0.120) H* 11/19/16 07:55 Troponin I, Quant 0.1320 ng/mL (0.00-0.120) H* 11/20/16 06:20 NT-Pro-B Natriuret Pep 1810 pg/mL (0-450) H 11/19/16 07:55 Total Protein 6.7 g/dL (6.3-8.3) 11/20/16 06:20 Albumin 3.5 g/dL (3.5-5.0) 11/20/16 06:20 Globulin 3.1 gm/dL (2.2-3.9) 11/20/16 06:20 Albumin/Globulin Ratio 1.1 (1.0-2.1) 11/20/16 06:20 TSH 3rd Generation 0.70 mIU/L (0.46-4.68) 11/20/16 06:20 Urine Opiates Screen Negative (NEGATIVE) 11/20/16 12:45 Urine Methadone Screen Negative (NEGATIVE) 11/20/16 12:45 Ur Barbiturates Screen Negative (NEGATIVE) 11/20/16 12:45 Ur Phencyclidine Scrn Negative (NEGATIVE) 11/20/16 12:45 Ur Amphetamines Screen Negative (NEGATIVE) 11/20/16 12:45 U Benzodiazepines Scrn Negative (NEGATIVE) 11/20/16 12:45 U Oth Cocaine Metabols Negative (NEGATIVE) 11/20/16 12:45 U Cannabinoids Screen Negative (NEGATIVE) 11/20/16 12:45 CRAIG 6 Profile Negative (NEGATIVE) 11/20/16 06:20 - Hospital Course Hospital Course: On Admission: Jason Esteves is a 26 year old male who came to the ER with the chief complaint of 3 days of worsening shortness of breath, chest pressure. From what the patient explains and what the family say, he has never been hospitalized before. In the ER he had an XRAY done which revealed a very significant cardiomegaly as well as bilateral chest congestion. He also had a systolic blood pressure of 225/110 and it did not respond to medications and thus was started on a Tridil ggt and brought to the ICU for further titration. Because of the way the the chest XRAY appeared there was concern that he may have had a pericardial tamponade/fluid collection around the heart and a stat echo was done. At this time we are currently pending the official report however I am being told that it appears that the patient does not have tamponade or pericardial effusion but that he has cardiomyopathy/hypokinesis. He has a BNP of 1,800 and there are borderline elevated tropinins as well. When I came and saw the patient he was already in ICU 4 and the systolic BP had come down to 170s while on the tridil ggt. He had also received a one time dose of Lasix 40 as well. He explained he felt much better, his shortness of breath was still present but improved. He reported the chest pain/pressure resolved, the shortness of breath resolved, denied headache, denied blurry vision, denied abdominal pain, denied fevers, denied chills. Both the patient and family explain that he does not sleep at night, that he has heavy snorring. He states he cannot lay flat on his back due to coughing. He and his family also reports a very poor eating habits and consumes very salty and unhealthy food. Hospital Course: On admission, CXR was performed in the ED with high suspicion of cardiac tamponade findings. Cardiothoracic surgery was consulted for recommendations. They did not feel that the exam findings and subsequent workup involving an EKG were suggestive of tamponade. The EKG did not have findings of electrical alternans at this time. In addition, it was though that the patient's presentation was more of a CHF exacerbation secondary to cardiomyopathy. As a result, Govind inhibitors and statins were added on board. Vehicle Calibration Engineer Dr. Felton was consulted. At this time, patient's actual Vehicle Calibration Engineer Dr. Messina was also informed of findings. Patient had elevated blood pressure findings indicative of a hypertensive emergency presentation secondary to the cardiomyopathy. Patient had elevated troponins which may have been stressed induced from the cardiomyopathy. Patient was started on a nitroglycerin drip. Patient was diuresed with Lasix and also administered Zestril for continued therapy. Patient was recommended to have outpatient sleep study workup upon discharge when his current symptoms resolved. ICU eval was warranted due to the young age of the patient as well as his acute findings and initial suspicions of tamponade on admission. Critical Care team managed with treatment as mentioned above and patient improved. Patient had acute kidney injury on top of his chronic kidney disease likely all secondarily due to the longstanding hypertension. It was recommended that the Lasix be decreased and or stopped with recommendations to Nephrology without improvement. Patient counseled extensively on life changes and continued follow up. Upon discharge: Patient is medically stable for discharge home. Patient is to follow up with Vehicle Calibration Engineer, Dr. Linda Messina within one week. Patient should follow up with his primary medical doctor as well. Patient is to be sent home with the following new prescriptions: Norvasc 10 mg, take one by mouth daily, Aspirin 81 mg, take one by mouth daily, Hydralazine 25 mg , take one by mouth three times a day, Simvastatin 10 mg take one by mouth before bedtime, Zestril 10 mg, take one by mouth daily and Lasix 20 mg, take one by mouth daily. Patient was counseled on the need for a sleep study. He should discuss this with his solar consultant. He will be provided with a prescription. Patient was counseled on his dietary habits; in particular- a low sodium diet. Patient should also increase his water intake daily. Patient was counseled on the benefits of daily exercise as well. Patient should only do as much as he can tolerate. He was counseled extensively on not overexerting himself. Patient will be provided with a work note clearing him through Wednesday, November 25. If symptoms return, go to the emergency room. Instructions explained to patient who is aware. This is a brief summary of events. For a complete course, refer to the medical record. Discharge Exam - Head Exam Head Exam: NORMAL INSPECTION, NORMOCEPHALIC - Eye Exam Eye Exam: EOMI, Normal appearance, PERRL Pupil Exam: NORMAL ACCOMODATION, PERRL - ENT Exam ENT Exam: Mucous Membranes Moist - Neck Exam Neck exam: Full Rom - Respiratory Exam Respiratory Exam: Clear to PA & Lateral - Cardiovascular Exam Cardiovascular Exam: +S1, +S2 - GI/Abdominal Exam GI & Abdominal Exam: Normal Bowel Sounds, Soft - Extremities Exam Extremities exam: full ROM - Back Exam Back exam: FULL ROM - Neurological Exam Neurological exam: Alert, CN II-XII Intact, Oriented x3 - Psychiatric Exam Psychiatric exam: Normal Affect, Normal Mood - Skin Skin Exam: Dry, Normal Color, Warm Discharge Plan - Discharge Medications Prescriptions: amLODIPine [Norvasc] 10 mg PO DAILY #30 tab Aspirin [Aspirin Chewable] 81 mg PO DAILY #30 Furosemide [Lasix] 20 mg PO DAILY #30 tablet hydrALAZINE [Apresoline] 25 mg PO TID #90 tab Lisinopril [Zestril] 10 mg PO DAILY #30 tab Simvastatin 10 mg PO DAILY #30 tablet - Follow Up Plan Condition: STABLE Disposition: HOME/ ROUTINE Instructions: Heart Failure (DC), Chest Pain (DC), Chronic Hypertension (DC) Additional Instructions: Patient is medically stable for discharge home. Patient is to follow up with Vehicle Calibration Engineer, Dr. Linda eMssina within one week. Patient should follow up with his primary medical doctor as well. Patient is to be sent home with the following new prescriptions: Norvasc 10 mg, take one by mouth daily, Aspirin 81 mg, take one by mouth daily, Hydralazine 25 mg , take one by mouth three times a day, Simvastatin 10 mg take one by mouth before bedtime, Zestril 10 mg, take one by mouth daily and Lasix 20 mg, take one by mouth daily. Patient was counseled on the need for a sleep study. He should discuss this with his solar consultant. He will be provided with a prescription. Patient was counseled on his dietary habits; in particular- a low sodium diet. Patient should also increase his water intake daily. Patient was counseled on the benefits of daily exercise as well. Patient should only do as much as he can tolerate. He was counseled extensively on not overexerting himself. Patient will be provided with a work note clearing him through Wednesday, November 25. If symptoms return, go to the emergency room. Instructions explained to patient who is aware. Referrals: Linda Messina MD [Staff Provider] - Clinical Quality Measures - CQM - Heart Failure Ejection Fraction: Less Than 40 % GOVIND Inhibitor Prescribed: Yes Beta-Mohsen Prescribed: None Contraindication/Reason for not providing: Not due to acute presentation. May be prescribed after he follows up Angiotensin II Receptor Mohsen Prescribed: No Contraindication/Reason for not providing: on Govind inhib AnticoagulationTherapy for Atrial Fibrillation/Atrialflutter: No Contraindication/Reason for not providing: No atral fibrillation Aldosterone Antagonist Prescribed: Yes Hydralazine Nitrate Prescribed: No Contraindication/Reason for not providing: Not indicated Implantable Cardioverter Defibrillator Therapy: No Contraindication/Reason for not providing: Will f/u with solar consultant Cardiac Resynchronization Therapy Prescribed: No Contraindication/Reason for not providing: will f/u with solar consultant <Govind Hopper - Last Filed: 11/27/16 07:19> Provider - Provider Date of Admission: 11/19/16 09:33 Attending physician: Govind Hopper DO Hospital Course - Lab Results Lab Results: Micro Results 11/19/16 14:58 Nose MRSA Culture (Admit) - Final MRSA NOT DETECTED Most Recent Lab Values WBC 7.5 K/uL (4.8-10.8) 11/22/16 06:40 RBC 5.08 Mil/uL (4.40-5.90) 11/22/16 06:40 Hgb 13.8 g/dL (12.0-18.0) 11/22/16 06:40 Hct 41.9 % (35.0-51.0) 11/22/16 06:40 MCV 82.6 fL (80.0-94.0) 11/22/16 06:40 MCH 27.3 pg (27.0-31.0) 11/22/16 06:40 MCHC 33.0 g/dL (33.0-37.0) 11/22/16 06:40 RDW 14.6 % (11.5-14.5) H 11/22/16 06:40 Plt Count 234 K/uL (130-400) 11/22/16 06:40 MPV 11.6 fL (7.2-11.7) 11/22/16 06:40 Neut % (Auto) 58.2 % (50.0-75.0) 11/22/16 06:40 Lymph % (Auto) 28.0 % (20.0-40.0) 11/22/16 06:40 [place] % (Auto) 10.7 % (0.0-10.0) H 11/22/16 06:40 Eos % (Auto) 2.3 % (0.0-4.0) 11/22/16 06:40 Baso % (Auto) 0.8 % (0.0-2.0) 11/22/16 06:40 Neut # 4.4 K/uL (1.8-7.0) 11/22/16 06:40 Lymph # 2.1 K/uL (1.0-4.3) 11/22/16 06:40 [place] # 0.8 K/uL (0.0-0.8) 11/22/16 06:40 Eos # 0.2 K/uL (0.0-0.7) 11/22/16 06:40 Baso # 0.1 K/uL (0.0-0.2) 11/22/16 06:40 Neutrophils % (Manual) 90 % (50-75) H 11/20/16 06:20 Lymphocytes % (Manual) 4 % (20-40) L 11/20/16 06:20 Monocytes % (Manual) 6 % (0-10) 11/20/16 06:20 Platelet Estimate Normal (NORMAL) 11/20/16 06:20 RBC Morphology Normal 11/20/16 06:20 PT 11.6 SECONDS (9.7-12.2) 11/19/16 07:55 INR 1.0 11/19/16 07:55 APTT 66 SECONDS (21-34) H D 11/22/16 06:40 Sodium 138 mmol/L (132-148) 11/22/16 06:40 Potassium 3.8 mmol/L (3.6-5.2) 11/22/16 06:40 Chloride 103 mmol/L (98-107) 11/22/16 06:40 Carbon Dioxide 26 mmol/L (22-30) 11/22/16 06:40 Anion Gap 13 (10-20) 11/22/16 06:40 BUN 33 mg/dL (9-20) H 11/22/16 06:40 Creatinine 1.8 MG/DL (0.8-1.5) H 11/22/16 06:40 Est GFR ( Amer) 56 11/22/16 06:40 Est GFR (Non-Af Amer) 46 11/22/16 06:40 Random Glucose 80 mg/dL (75-110) 11/22/16 06:40 Calcium 9.2 mg/dl (8.6-10.4) 11/22/16 06:40 Phosphorus 4.0 mg/dL (2.5-4.5) 11/20/16 06:20 Magnesium 1.8 mg/dL (1.6-2.3) 11/20/16 06:20 Total Bilirubin 0.6 mg/dL (0.2-1.3) 11/20/16 06:20 AST 23 U/L (17-59) 11/20/16 06:20 ALT 39 U/L (21-72) 11/20/16 06:20 Alkaline Phosphatase 44 U/L (38-126) 11/20/16 06:20 Total Creatine Kinase 78 U/L (55-170) 11/20/16 06:20 CK-MB (Mass) 1.78 ng/mL (0.0-3.38) 11/20/16 06:20 Troponin I 0.1660 ng/mL (0.00-0.120) H* 11/19/16 07:55 Troponin I, Quant 0.1320 ng/mL (0.00-0.120) H* 11/20/16 06:20 NT-Pro-B Natriuret Pep 1810 pg/mL (0-450) H 11/19/16 07:55 Total Protein 6.7 g/dL (6.3-8.3) 11/20/16 06:20 Albumin 3.5 g/dL (3.5-5.0) 11/20/16 06:20 Globulin 3.1 gm/dL (2.2-3.9) 11/20/16 06:20 Albumin/Globulin Ratio 1.1 (1.0-2.1) 11/20/16 06:20 TSH 3rd Generation 0.70 mIU/L (0.46-4.68) 11/20/16 06:20 Urine Opiates Screen Negative (NEGATIVE) 11/20/16 12:45 Urine Methadone Screen Negative (NEGATIVE) 11/20/16 12:45 Ur Barbiturates Screen Negative (NEGATIVE) 11/20/16 12:45 Ur Phencyclidine Scrn Negative (NEGATIVE) 11/20/16 12:45 Ur Amphetamines Screen Negative (NEGATIVE) 11/20/16 12:45 U Benzodiazepines Scrn Negative (NEGATIVE) 11/20/16 12:45 U Oth Cocaine Metabols Negative (NEGATIVE) 11/20/16 12:45 U Cannabinoids Screen Negative (NEGATIVE) 11/20/16 12:45 CRAIG 6 Profile Negative (NEGATIVE) 11/20/16 06:20 Attending/Attestation - Attestation I have personally seen and examined this patient.: Yes I have fully participated in the care of the patient.: Yes I have reviewed all pertinent clinical information, including history, physical exam and plan: Yes Notes (Text): Medical attending: Patient was seen and examined by me, agrees the above note by medical translator. Please note this discharge summary is being signed by me at a later date as is afford to me after it left service. Nevertheless I did review the note and we also saw the patient on the day of discharge and I agree with this note by medical translator. Patient denied any chest pain, denied shortness breath, denied palpitations. On her physical exam he was also able to ambulate without becoming short of breath or develop chest pain or palpitations. Negative very long conversation with regards to lifestyle modifications. We also encouraged him that he definitely needs an outpatient obstructive sleep apnea study. He had echo done the results of which documented above the resident note. The patient will need to be very compliant with his medications including aspirin, statin, GOVIND inhibitor, and calcium channel mohsen and hydralazine. As noted before there is a strong family history of cardiac disease. We were very careful to explain to patient that he needs to control his blood pressure otherwise he to further cardiac problems or have a stroke The patient will need to follow-up with his primary medical doctor as well. Thank you very much, Govind Hopper
== END 2016-11-22 15:20 | disposition home or self-care (01) | DRG 304 ==
LOC: C.ER 07:05 → C.9E 09:33 → C.9I 10:32
PROVIDERS: ADMIT Hospitalist; ATTEND Hospitalist
PROC: 5A09457 Assistance with Respiratory Ventilation, 24-96 Consecutive Hours, Continuous Positive Airway Pressure (ICD-10-PCS; principal; 2016-11-19)
DX: I16.1 Hypertensive emergency (principal); I50.43 Acute on chronic combined systolic (congestive) and diastolic (congestive) heart failure; J96.01 Acute respiratory failure with hypoxia; N17.9 Acute kidney failure, unspecified; I42.0 Dilated cardiomyopathy; J45.909 Unspecified asthma, uncomplicated; G47.33 Obstructive sleep apnea (adult) (pediatric); E87.6 Hypokalemia; I13.0 Hypertensive heart and chronic kidney disease with heart failure and stage 1 through stage 4 chronic kidney disease, or unspecified chronic kidney disease; N18.9 Chronic kidney disease, unspecified; I48.91 Unspecified atrial fibrillation; Z79.01 Long term (current) use of anticoagulants

== ENCOUNTER 2017-01-26 17:54 | Emergency (ER) | payer BC ==
[2017-01-26 18:05] VITALS: BMI 34.5
[2017-01-26 18:07] VITALS: TEMP 98.3
--- NOTE | 2017-01-26 18:37 | RAD ---
HISTORY: sob COMPARISON: Chest x-ray performed 11/20/16 TECHNIQUE: Chest PA and lateral FINDINGS: Examination limited by habitus. LUNGS: No focal consolidation. Please note that chest x-ray has limited sensitivity for the detection of pulmonary masses. PLEURA: No significant pleural effusion identified. No definite pneumothorax . CARDIOVASCULAR: The cardiomediastinal silhouette appears within normal limits of size. OSSEOUS STRUCTURES: No acute osseous abnormality identified. VISUALIZED UPPER ABDOMEN: Unremarkable. OTHER FINDINGS: None. IMPRESSION: No focal consolidation, significant pleural effusion, or definite pneumothorax identified.
[2017-01-26 20:34] LABS: BASO # 0.1 K/uL (0.0-0.2); EOS # 0.9 K/uL (0.0-0.7); EOS % 9.3 % (0.0-4.0); HEMATOCRIT 38.9 % (35.0-51.0); LYMPH % 21.5 % (20.0-40.0); MEAN CELL VOLUME 81.2 fL (80.0-94.0); MEAN CORPUSCULAR HEMOGLOBIN 26.3 pg (27.0-31.0); MEAN CORPUSCULAR HGB CONC 32.4 g/dL (33.0-37.0); MEAN PLATELET VOLUME 10.2 fL (7.2-11.7); MONO # 0.9 K/uL (0.0-0.8); MONO % 10.1 % (0.0-10.0); RED CELL DISTRIBUTION WIDTH 14.6 % (11.5-14.5); WHITE BLOOD COUNT 9.3 K/uL (4.8-10.8)
[2017-01-26 20:49] LABS: ALB/GLOB RATIO 1.4 (1.0-2.1); BILIRUBIN,TOTAL 0.9 mg/dL (0.2-1.3); CALCIUM 8.5 mg/dl (8.6-10.4); POTASSIUM 3.4 mmol/L (3.6-5.2); TOTAL PROTEIN 7.4 g/dL (6.3-8.3)
[2017-01-26] MEDS ORDERED: Albuterol-Ipratrop 3 mg / 0.5 (3 ml) UD INH STA ×2 (20:52→22:38)
[2017-01-26 21:00] LABS: TROPONIN I 0.013 ng/mL (0.00-0.120)
[2017-01-26] MEDS ORDERED: Albuterol-Ipratrop 3 mg / 0.5 (3 ml) UD ONE (22:49)
[2017-01-26 22:57] VITALS: O2SAT 99
--- NOTE | 2017-01-26 23:11 | C.PDOC ---
History Of Present Illness 26 year old male with Hx of cardiac problems presents to the ED c/o SOB, cough and wheezing for the last 2 days, patient states having a Hx of asthma that he understood was cardiac asthma, but no asthma medications nor treatment modalities @ home. Time Seen by Provider: 01/26/17 18:16 Chief Complaint (Nursing): Shortness Of Breath History Per: Patient History/Exam Limitations: no limitations Onset/Duration Of Symptoms: Days Current Symptoms Are (Timing): Still Present Exacerbating Factor(s): Coughing Associated Symptoms: denies: Fever, Chills, Dizziness, Light-headedness Recent travel outside of the [place]: No Additional History Per: Patient Past Medical History Reviewed: Historical Data, Nursing Documentation, Vital Signs Vital Signs: Last Vital Signs Temp 98.3 F 01/26/17 23:23 Pulse 72 01/26/17 23:23 Resp 22 01/26/17 23:23 BP 126/82 01/26/17 23:23 Pulse Ox 99 01/27/17 00:43 - Medical History PMH: Asthma, Bronchitis, HTN Denies: Chronic Kidney Disease Surgical History: No Surg Hx - [facility] Procedures APPLICATION OF SPLINT (10/15/13) ASSISTANCE WITH RESPIRATORY VENTILATION, 24-96 HRS, CPAP (11/19/16) Family History: States: Unknown Family Hx - Social History Hx Tobacco Use: No Hx Alcohol Use: No Hx Substance Use: No - Immunization History Hx Tetanus Toxoid Vaccination: No Hx Influenza Vaccination: No Hx Pneumococcal Vaccination: No Review Of Systems Constitutional: Positive for: Other (severe snoring, no significant weight loss despite intention, daytime somnolence, difficulty concentrating). Negative for : Fever, Chills, Weakness Cardiovascular: Negative for: Chest Pain, Palpitations Respiratory: Positive for: Cough, Shortness of Breath Gastrointestinal: Negative for: Nausea, Vomiting, Abdominal Pain Neurological: Negative for: Weakness, Numbness, Headache Physical Exam - Physical Exam Appears: Non-toxic, No Acute Distress, Other (Morbidly obese, snoring loudly) Skin: Normal Color, Warm, Dry Head: Atraumatic, Normacephalic Oral Mucosa: Moist Neck: Normal ROM, Supple Chest: Symmetrical Cardiovascular: Rhythm Regular, No Murmur Respiratory: Wheezing (Inspiratory and expiratory ) Gastrointestinal/Abdominal: Soft, No Tenderness, Other (Obese) Extremity: Normal ROM, No Pedal Edema, No Calf Tenderness, No Swelling Neurological/Psych: Oriented x3, Normal Speech, Normal Cognition Gait: Steady ED Course And Treatment - Laboratory Results Result Diagrams: 01/26/17 20:28 01/26/17 20:28 Lab Interpretation: Normal (bnp/trop neg.) O2 Sat by Pulse Oximetry: 99 (On RA) Pulse Ox Interpretation: Normal - Radiology CXR: Interpreted by Sd CXR Interpretation: Yes: No Acute Disease ( + bronchial cuff thickening. no pna/ pnx) Progress Note: solumedrol, duonebs. prednisone, repeat duonebs Reevaluation Time: 23:10 Reassessment Condition: Improved (initially improved with nebs, then completely cleared w 2nd round of steroids and nebs.) Critical Care Time - Critical Care Note Total Time (in mins): 90 Documented critical care: time excludes all time spent performing seperately billable procedures. Medical Decision Making Medical Decision Making: reactive airway dz with bronchial cuff thickening on CXR, + wheezing improved with steroids and nebs, normal cardiac w/u. NOT c/w "Cardiac asthma" Disposition Doctor Will See Patient In The: Office Counseled Patient/Family Regarding: Studies Performed, Diagnosis - Disposition Referrals: Jose Jj MD [Staff Provider] - Linda Messina MD [Staff Provider] - Disposition: HOME/ ROUTINE Disposition Time: 23:11 Condition: GOOD Additional Instructions: Tratamientos nebulizadas con DOS ampulas de Duoneb (liquidos) cada 3-4 horas [place] necessario Connecta con la macina de aire compressada 2 puffs con Albuterol Bomba cada 3-4 horas cuando esta afuera de la casa Siempre usa con el Aerochamber Spacer (tubo plastico) para que funcciona mejor Prednisona 40 mg diario por 4 dye mas pepcid 20 mg en la noche para prevenir irritacion' del estomago debido al prednisona Sigue con Dr. Messina en 2 dye para re-evaluacion' Sleep Apnea: Sigue con Dr. Jj (especialista de problemas de dormir) Llama para hacer lani para hacer breaux estudio de dormir. Prescriptions: Albuterol Sulfate [Proair Hfa] 200 puff IH Q4H PRN #1 inh PRN Reason: asthma Albuterol/Ipratropium [Duoneb 3 MG/3 Ml-0.5 MG/3 Ml 3 Ml] 6 ml IH Q4H PRN #100 neb PRN Reason: asthma Nebulizer [Compact Compressor Nebulizer] 1 dev XX PRN PRN #1 dev PRN Reason: asthma Prednisone [Deltasone] 40 mg PO DAILY #8 tablet Spacer, Inhalation [Aerochamber] 1 dev IH DAILY #1 dev Instructions: Snoring (ED), Reactive Airways Disease (ED) Forms: [employer] (Malay) Print Language: CITIZEN OF [place] - Clinical Impression Clinical Impression: Reactive airway disease with acute exacerbation - Scribe Statement The provider has reviewed the documentation as recorded by the Scribe Kamari Florentino All medical record entries made by the Scribe were at my direction and personally dictated by me. I have reviewed the chart and agree that the record accurately reflects my personal performance of the history, physical exam, medical decision making, and the department course for this patient. I have also personally directed, reviewed, and agree with the discharge instructions and disposition.
[2017-01-26 23:26] VITALS: BP 126/82; PULSE 72; RESP 22
--- NOTE | 2017-01-28 08:32 | CARD ---
APPROVED REPORT EKG Measurement Heart [id number] DC 150P4 [id number] <Conclusion> Normal sinus rhythm Normal ECG
== END 2017-01-26 23:26 | disposition home or self-care (01) ==
LOC: C.ER 17:54
DX: J45.901 Unspecified asthma with (acute) exacerbation (principal)
CPT/HCPCS: 71020; 80053; 83880; 84484; 85025; 96374; 99285; J2930

== ENCOUNTER 2018-06-26 16:54 | Emergency (ER) | payer BC ==
[2018-06-26 16:55] VITALS: BMI 34.5
[2018-06-26 17:14] VITALS: RESP 18
[2018-06-26 17:56] LABS: BASO # 0.1 K/uL (0.0-0.2); EOS # 0.3 K/uL (0.0-0.7); EOS % 4.5 % (0.0-4.0); LYMPH # 1.2 K/uL (1.0-4.3); LYMPH % 16.7 % (20.0-40.0); MEAN CELL VOLUME 81.5 fL (80.0-94.0); MEAN CORPUSCULAR HEMOGLOBIN 26.5 pg (27.0-31.0); MEAN CORPUSCULAR HGB CONC 32.5 g/dL (33.0-37.0); MEAN PLATELET VOLUME 10.1 fL (7.2-11.7); MONO # 0.9 K/uL (0.0-0.8); MONO % 12.8 % (0.0-10.0); NEUT # 4.6 K/uL (1.8-7.0); RBC 5.81 Mil/uL (4.40-5.90); RED CELL DISTRIBUTION WIDTH 14.5 % (11.5-14.5); WHITE BLOOD COUNT 7.2 K/uL (4.8-10.8)
[2018-06-26 18:04] LABS: HEMOGLOBIN 15.4 g/dL (12.0-18.0)
[2018-06-26 18:09] LABS: BLOOD UREA NITROGEN 14 mg/dL (9-20); CALCIUM 9.1 mg/dl (8.6-10.4); GFR NON-AFRICAN AMERICAN 56
--- NOTE | 2018-06-26 18:09 | C.PDOC ---
Time Seen by Provider: 06/26/18 17:19 Chief Complaint (Nursing): ENT Problem Past Medical History Vital Signs: Last Vital Signs Temp 99 F 06/26/18 17:02 Pulse 84 06/26/18 17:13 Resp 18 06/26/18 17:13 BP 150/104 H 06/26/18 17:13 Pulse Ox 96 06/26/18 17:02 - Medical History PMH: Asthma, Bronchitis, HTN Denies: Chronic Kidney Disease - [facility] Procedures APPLICATION OF SPLINT (10/15/13) ASSISTANCE WITH RESPIRATORY VENTILATION, 24-96 HRS, CPAP (11/19/16) Family History: States: Unknown Family Hx - Social History Hx Tobacco Use: No Hx Alcohol Use: No Hx Substance Use: No - Immunization History Hx Tetanus Toxoid Vaccination: No Hx Influenza Vaccination: No Hx Pneumococcal Vaccination: No ED Course And Treatment - Laboratory Results Result Diagrams: 06/26/18 17:52 O2 Sat by Pulse Oximetry: 96 Disposition Counseled Patient/Family Regarding: Diagnosis, Need For Followup, Rx Given - Disposition Referrals: Shahab Lorenzana MD [Staff Provider] - Disposition: HOME/ ROUTINE Disposition Time: 18:07 Condition: STABLE Prescriptions: Amoxicillin 875 mg PO BID #14 tab Instructions: Nosebleeds (DC) Forms: [employer] (Spanish) - POA Present On Arrival: None - Clinical Impression Clinical Impression: Epistaxis
[2018-06-26 18:10] LABS: INR 1.2; PROTHROMBIN TIME 12.9 SECONDS (9.7-12.2)
--- NOTE | 2018-06-26 18:10 | C.PDOC ---
History Of Present Illness 28 y/o male presents to ED with chief complaint of nose bleed. Patient states he developed a nose bleed today from the left nostril. Bleeding was stopped by applying pressure. Patient has history of hypertension. He denies trauma. Time Seen by Provider: 06/26/18 17:19 Chief Complaint (Nursing): ENT Problem History Per: Patient History/Exam Limitations: None Onset/Duration Of Symptoms: Hrs Current Symptoms Are (Timing): Still Present Past Medical History Reviewed: Historical Data, Nursing Documentation, Vital Signs Vital Signs: Last Vital Signs Temp 99 F 06/26/18 17:02 Pulse 84 06/26/18 17:13 Resp 18 06/26/18 17:13 BP 150/104 H 06/26/18 17:13 Pulse Ox 96 06/26/18 17:02 - Medical History PMH: Asthma, Bronchitis, HTN Denies: Chronic Kidney Disease - [facility] Procedures APPLICATION OF SPLINT (10/15/13) ASSISTANCE WITH RESPIRATORY VENTILATION, 24-96 HRS, CPAP (11/19/16) Family History: States: No Known Family Hx - Social History Hx Tobacco Use: No Hx Alcohol Use: No Hx Substance Use: No - Immunization History Hx Tetanus Toxoid Vaccination: No Hx Influenza Vaccination: No Hx Pneumococcal Vaccination: No Review Of Systems Except As Marked, All Systems Reviewed And Found Negative. Constitutional: Negative for: Fever ENT: Positive for: Other (Nose bleed) Gastrointestinal: Negative for: Nausea, Vomiting Neurological: Negative for: Headache, Dizziness Physical Exam - Physical Exam Appears: Non-toxic, No Acute Distress Skin: Warm, Dry Head: Atraumatic Eye(s): bilateral: Normal Inspection Nose: Other (Active bleeding from left nostril but source of bleeding not identified) Oral Mucosa: Moist Neck: Supple Cardiovascular: Rhythm Regular, No Murmur Respiratory: Normal Breath Sounds, No Rales, No Rhonchi, No Wheezing Gastrointestinal/Abdominal: Soft, No Tenderness Back: Normal Inspection Extremity: Normal ROM Extremity: Bilateral: Atraumatic Neurological/Psych: Oriented x3, Normal Speech, Normal Cognition ED Course And Treatment - Laboratory Results Result Diagrams: 06/26/18 17:52 06/26/18 17:52 O2 Sat by Pulse Oximetry: 96 (RA) Pulse Ox Interpretation: Normal Procedure: Blank - Time Out Time Out: Side verified - Consent obtained: Consent obtained: Verbal - Performed by: Performed by:: Attending physician - Contraindications: Contraindications:: None - Location Location: Left (nostril) - Description Discription of Procedure: 06/26/18 (7.5 rhinoballoon inserted, bleeding stopped) - Result Result: Successful - Patient Tolerated Procedure Patient Tolerated Procedure:: Well Medical Decision Making Medical Decision Making: Plan: --Labs Disposition Counseled Patient/Family Regarding: Diagnosis, Need For Followup, Rx Given - Disposition Referrals: Shahab Lorenzana MD [Staff Provider] - Disposition: HOME/ ROUTINE Disposition Time: 18:12 Condition: STABLE Prescriptions: Amoxicillin 875 mg PO BID #14 tab Instructions: Nosebleeds (DC) Forms: [employer] (Greenlandic), Work Excuse Print Language: SERBIAN - Clinical Impression Clinical Impression: Epistaxis - Scribe Statement The provider has reviewed the documentation as recorded by the Sujitibtolu Trujillo Provider Attestation: All medical record entries made by the Sujitibe were at my direction and personally dictated by me. I have reviewed the chart and agree that the record accurately reflects my personal performance of the history, physical exam, medical decision making, and the department course for this patient. I have also personally directed, reviewed, and agree with the discharge instructions and disposition.
[2018-06-26] MEDS ORDERED: Potassium Chloride 20 mEq ER Tab PO STA (18:14)
[2018-06-26 18:25] VITALS: BP 116/77; PULSE 92; TEMP 99.7
[2018-06-26] MEDS ORDERED: Potassium Chloride 20 mEq ER Tab PO ONE (18:25)
[2018-06-26 18:29] VITALS: O2SAT 96
== END 2018-06-26 18:30 | disposition home or self-care (01) ==
LOC: C.ER 16:54
DX: R04.0 Epistaxis (principal)